=== PATIENT | male | born 1965 | race Caucasian/White ===

== ENCOUNTER 2018-11-07 09:42 | Inpatient (IN) | payer OTHER ==
[2018-11-07 10:57] VITALS: BMI 19.5
--- NOTE | 2018-11-07 12:21 | HP ---
CIWA Score Nausea/Vomitin-Mild Nausea/No Vomiting Muscle Tremors: 4-Moderate,w/Arms Extend Anxiety: 3 Agitation: 3 Paroxysmal Sweats: No Perspiration Orientation: 0-Oriented Tacttile Disturbances: 0-None Auditory Disturbances: 0-None Visual Disturbances: 0-None Headache: 2-Mild CIWA-Ar Total Score: 13 - Admission Criteria OASAS Guidelines: Admission for Medically Managed Detox: Requires at least one of the followin. CIWA greater than 12 2. Seizures within the past 24 hours 3. Delirium tremens within the past 24 hours 4. Hallucinations within the past 24 hours 5. Acute intervention needed for co occurring medical disorder 6. Acute intervention needed for co occurring psychiatric disorder 7. Severe withdrawal that cannot be handled at a lower level of care (continued vomiting, continued diarrhea, abnormal vital signs) requiring intravenous medication and/or fluids 8. Admission ROS [facility] Chief Complaint: alcohol detox Allergies/Adverse Reactions: Allergies Allergy/AdvReac Type Severity Reaction Status Date / Time shellfish derived Allergy Swelling Verified 11/07/18 10:46 History of Present Illness: Patient is a 53 yo M with no known PMHx (does not see a doctor), presenting here for alcohol detox. Says he has been drinking for a year straight every day. Drink 2-3 pints of vodka per day. Last drink yesterday at 2pm. Says he sniffs heroin occasionally. But no IV drug use. Currently on 50mg of methadone @ [facility]. Has been on methadone for 1 year. Denies history of seizure, blacking out. Smokes 10 cigarettes a day. Unemployed. Lives alone in an apartment. Has been to multiple detox centers in the past. Last one being in 6 months. Exam Limitations: No Limitations - Ebola screening Have you traveled outside of the country in the last 21 days: No Have you had contact with anyone from an Ebola affected area: No Do you have a fever: No - Review of Systems Constitutional: Loss of Appetite, Unintentional Wgt. Loss Respiratory: reports: Cough (w/ yellow sputum (couple of months)). denies: Shortness of Breath Cardiac: denies: Chest Pain, Palpitations GI: denies: Diarrhea, Nausea Patient History - Smoking Cessation Smoking history: Current every day smoker Initiated information on smoking cessation: Yes 'Breaking Loose' booklet given: 11/07/18 - Substances abused Alcohol Substance route: Oral Frequency: Daily Amount used: 3 pints vodka Age of first use: 18 Date of last use: 11/06/18 Heroin Substance route: Inhalation Frequency: 1-2 times per week Amount used: $10 bag Age of first use: 18 Date of last use: 11/02/18 Family Disease History - Family Disease History Family History: Denies Admission Physical Exam S - Vital Signs Vital Signs: Vital Signs - 24 hr 11/07/18 10:41 Temperature 97.4 F L Pulse Rate 59 L Respiratory 18 Rate Blood Pressure 120/80 - Physical General Appearance: Yes: Thin, Tremorous HEENTM: Yes: Other (b/l injected conjunctiva) Respiratory: Yes: No Respiratory Distress, No Accessory Muscle Use Neck: Yes: Supple Abdominal: Yes: Normal Bowel Sounds, Non Tender, Soft Extremities: Yes: Other (Bruising on B/L knee from falls). No: Swelling - Diagnostic (1) Alcohol abuse Current Visit: Yes Status: Acute (2) Methadone maintenance therapy patient Current Visit: Yes Status: Acute (3) Heroin abuse Current Visit: Yes Status: Acute Breathalyzer - Breathalyzer Breathalyzer: 0 Urine Drug Screen - Test Device Lot number: [id number] Expiration date: 08/11/20 - Control Is test valid?: Yes - Results Drug screen NEGATIVE: No Urine drug screen results: MTD-Methadone Inpatient Rehab Admission - Rehab Decision to Admit Inpatient rehab admission?: No
[2018-11-07] MEDS ORDERED: ACETAMINOPHEN 325 MG TABLET (FP) PO PRN ×2 (12:28)
[2018-11-07] MEDS ORDERED: BISMUTH SUBSALICYLATE 524 MG/30 ML UD PO PRN (12:28)
[2018-11-07] MEDS ORDERED: MAGNESIUM HYDROX 2400MG/30ML ORAL SUSPENSION 30 ML CUP PO PRN (12:28)
[2018-11-07] MEDS ORDERED: chlordiazePOXIDE HCL 25 MG CAPSULE PO PRN (12:28)
[2018-11-07] MEDS ORDERED: MAG HYDROX/AL HYDROX/SIMETH 30 ML UNIT-DOSE CUP PO PRN (12:28)
[2018-11-07] MEDS ORDERED: hydrOXYzine PAMOATE 25 MG CAPSULE (FP) PO PRN (12:28)
[2018-11-07] MEDS ORDERED: IBUPROFEN 400 MG TABLET (FP) PO PRN (12:28)
[2018-11-07] MEDS ORDERED: MENTHOL/PHENOL 1 EACH UD MM PRN (12:28)
[2018-11-07] MEDS ORDERED: METHOCARBAMOL 500 MG TABLET PO PRN (12:28)
[2018-11-07] MEDS ORDERED: MAGNESIUM CITRATE 300 ML BOTTLE PO PRN (12:28)
[2018-11-07] MEDS: NICOTINE 14 MG/24 HOURS TOPICAL PATCH TD SCH (14:14)
--- NOTE | 2018-11-07 15:44 | PN ---
Teaching Attending Note Name of Resident: Beth Arevalo ATTENDING PHYSICIAN STATEMENT I saw and evaluated the patient. I reviewed the resident's note and discussed the case with the resident. I agree with the resident's findings and plan as documented. SUBJECTIVE: Agree with subjective findings OBJECTIVE: Agree with objective findings ASSESSMENT AND PLAN: Agree with plan and treatment.
[2018-11-07] MEDS: chlordiazePOXIDE HCL 25 MG CAPSULE PO SCH ×2 (16:41→22:13)
[2018-11-07 18:16] LABS: HEMATOCRIT 44.4 % (35.4-49); HEMOGLOBIN 14.4 GM/dL (11.7-16.9); MCH 29.3 pg (25.7-33.7); MCHC 32.3 g/dl (32.0-35.9); MEAN CELL VOLUME 90.5 fl (80-96); MEAN PLT VOLUME 9.8 fl (7.5-11.1); PLATELET COUNT 165 K/MM3 (134-434); RDW 14.7 % (11.9-15.9); WHITE BLOOD COUNT 7.6 K/mm3 (4.0-10.0)
[2018-11-07 18:28] LABS: ALBUMIN 4.2 g/dl (3.4-5.0); BILIRUBIN,TOTAL 0.8 mg/dL (0.2-1); BLOOD UREA NITROGEN 17.5 mg/dL (7-18); CALCIUM 9.3 mg/dL (8.5-10.1); CREATININE 0.7 mg/dL (0.55-1.3); POTASSIUM 3.9 mmol/L (3.5-5.1); TOT PROT 8.1 g/dl (6.4-8.2)
[2018-11-07] MEDS: MELATONIN 5 MG TABLETS PO PRN (22:13)
[2018-11-07] MEDS: THIAMINE HCL 100 MG TABLET (FP) PO SCH (22:13)
[2018-11-08] MEDS: chlordiazePOXIDE HCL 25 MG CAPSULE PO SCH ×4 (05:22→22:04)
[2018-11-08] MEDS ORDERED: METHADONE HCL 10 MG TABLET PO ONE (08:40)
[2018-11-08] MEDS ORDERED: METHADONE 40 MG, METHADONE 10 MG PO ONE (08:50)
[2018-11-08] MEDS ORDERED: METHADONE HCL 40 MG DISPERSABLE TABLET ONE (09:00)
[2018-11-08] MEDS ORDERED: METHADONE HCL 10 MG TABLET ONE (09:00)
[2018-11-08] MEDS: PRENATAL VITAMINS W/ FOLIC ACID TABLET (FP) PO SCH (10:04)
[2018-11-08] MEDS: NICOTINE 14 MG/24 HOURS TOPICAL PATCH TD SCH (10:05)
--- NOTE | 2018-11-08 10:29 | PN ---
[facility] CIWA - CIWA Score Nausea/Vomitin-No Nausea/No Vomiting Muscle Tremors: 3 Anxiety: 3 Agitation: 3 Paroxysmal Sweats: 2 Orientation: 0-Oriented Tacttile Disturbances: 0-None Auditory Disturbances: 0-None Visual Disturbances: 0-None Headache: 0-None Present CIWA-Ar Total Score: 11 S Progress Note (SOAP) Subjective: restless agitation sweats interrupted sleep Objective: 11/08/18 10:28 Vital Signs Temperature 97.9 F 11/08/18 09:27 Pulse Rate 58 L 11/08/18 09:27 Respiratory Rate 16 11/08/18 09:27 Blood Pressure 124/70 11/08/18 09:27 O2 Sat by Pulse Oximetry (%) Laboratory Tests 11/07/18 11/07/18 12:45 12:45 WBC 7.6 RBC 4.90 Hgb 14.4 Hct 44.4 MCV 90.5 MCH 29.3 MCHC 32.3 RDW 14.7 Plt Count 165 MPV 9.8 Sodium 139 Potassium 3.9 Chloride 100 Carbon Dioxide 30 Anion Gap 9 BUN 17.5 Creatinine 0.7 Est GFR (CKD-EPI)AfAm 124.87 Est GFR (CKD-EPI)NonAf 107.74 Random Glucose 67 L Calcium 9.3 Total Bilirubin 0.8 AST 100 H ALT 93 H Alkaline Phosphatase 88 Total Protein 8.1 Albumin 4.2 labs noted elevated ast/alt encourage fluid intake aaox3 ambulating no acute distress Assessment: 11/08/18 10:29 withdrawal sx Plan: continue detox increase fluids
--- NOTE | 2018-11-08 10:56 | EKG ---
Test Reason : Blood Pressure : / mmHG Vent. Rate : 056 BPM Atrial Rate : 056 BPM P-R Int : 120 ms QRS Dur : 092 ms QT Int : 444 ms P-R-T Axes : 014 060 061 degrees QTc Int : 428 ms SINUS BRADYCARDIA OTHERWISE NORMAL ECG NO PREVIOUS ECGS AVAILABLE Confirmed by SATYA MATOS, AINSA ([id number]) on 11/08/2018 10:56:09 AM Referred By: Confirmed By:ANISA HERNADEZ MD
[2018-11-08] MEDS: NICOTINE POLACRILEX 2 MG GUM BUC PRN ×2 (17:34→22:05)
[2018-11-08] MEDS: MELATONIN 5 MG TABLETS PO PRN (22:03)
[2018-11-08] MEDS: THIAMINE HCL 100 MG TABLET (FP) PO SCH (22:04)
[2018-11-09] MEDS ORDERED: METHADONE HCL 40 MG DISPERSABLE TABLET ONE (04:25)
[2018-11-09] MEDS ORDERED: METHADONE HCL 10 MG TABLET ONE (04:25)
[2018-11-09] MEDS: chlordiazePOXIDE HCL 25 MG CAPSULE PO SCH ×4 (05:41→22:23)
[2018-11-09] MEDS: METHADONE 40 MG, METHADONE 10 MG PO SCH (05:41)
[2018-11-09] MEDS ORDERED: METHADONE HCL 40 MG DISPERSABLE TABLET PO SCH (06:00)
[2018-11-09] MEDS: PRENATAL VITAMINS W/ FOLIC ACID TABLET (FP) PO SCH (10:19)
[2018-11-09] MEDS: NICOTINE POLACRILEX 2 MG GUM BUC PRN ×4 (10:20→22:24)
[2018-11-09] MEDS: NICOTINE 14 MG/24 HOURS TOPICAL PATCH TD SCH (10:20)
[2018-11-09] MEDS ORDERED: PNEUMOCOCCAL 23 VACCINE 0.5 ML VIAL IM ONE (12:00)
--- NOTE | 2018-11-09 12:21 | PN ---
[facility] CIWA - CIWA Score Nausea/Vomitin-No Nausea/No Vomiting Muscle Tremors: 3 Anxiety: 2 Agitation: 2 Paroxysmal Sweats: 2 Orientation: 0-Oriented Tacttile Disturbances: 0-None Auditory Disturbances: 0-None Visual Disturbances: 0-None Headache: 0-None Present CIWA-Ar Total Score: 9 S Progress Note (SOAP) Subjective: shakes anxiety Objective: 11/09/18 12:19 Vital Signs Temperature 97.2 F L 11/09/18 09:41 Pulse Rate 73 11/09/18 09:41 Respiratory Rate 18 11/09/18 09:41 Blood Pressure 126/70 11/09/18 09:41 O2 Sat by Pulse Oximetry (%) Laboratory Tests 11/07/18 11/07/18 11/07/18 12:45 12:45 12:45 WBC 7.6 RBC 4.90 Hgb 14.4 Hct 44.4 MCV 90.5 MCH 29.3 MCHC 32.3 RDW 14.7 Plt Count 165 MPV 9.8 Sodium 139 Potassium 3.9 Chloride 100 Carbon Dioxide 30 Anion Gap 9 BUN 17.5 Creatinine 0.7 Est GFR (CKD-EPI)AfAm 124.87 Est GFR (CKD-EPI)NonAf 107.74 Random Glucose 67 L Calcium 9.3 Total Bilirubin 0.8 AST 100 H ALT 93 H Alkaline Phosphatase 88 Total Protein 8.1 Albumin 4.2 RPR Titer Nonreactive HIV 1&2 Ag/Ab, 4th Gen 11/07/18 12:45 WBC RBC Hgb Hct MCV MCH MCHC RDW Plt Count MPV Sodium Potassium Chloride Carbon Dioxide Anion Gap BUN Creatinine Est GFR (CKD-EPI)AfAm Est GFR (CKD-EPI)NonAf Random Glucose Calcium Total Bilirubin AST ALT Alkaline Phosphatase Total Protein Albumin RPR Titer HIV 1&2 Ag/Ab, 4th Gen Non reactive labs noted aaox3 ambulating no acute distress Assessment: 11/09/18 12:21 withdrawals sx Plan: continue detox increase fluids
[2018-11-09] MEDS: THIAMINE HCL 100 MG TABLET (FP) PO SCH (22:23)
[2018-11-09] MEDS: MELATONIN 5 MG TABLETS PO PRN (22:24)
[2018-11-10] MEDS ORDERED: chlordiazePOXIDE HCL 10 MG CAPSULE PO PRN
[2018-11-10] MEDS ORDERED: METHADONE HCL 10 MG TABLET ONE (04:45)
[2018-11-10] MEDS ORDERED: METHADONE HCL 40 MG DISPERSABLE TABLET ONE (04:45)
[2018-11-10] MEDS: METHADONE 40 MG, METHADONE 10 MG PO SCH (05:47)
[2018-11-10] MEDS: chlordiazePOXIDE HCL 10 MG CAPSULE PO SCH ×4 (05:47→22:04)
[2018-11-10] MEDS: NICOTINE POLACRILEX 2 MG GUM BUC PRN ×4 (10:03→22:04)
[2018-11-10] MEDS: NICOTINE 14 MG/24 HOURS TOPICAL PATCH TD SCH (10:03)
[2018-11-10] MEDS: PRENATAL VITAMINS W/ FOLIC ACID TABLET (FP) PO SCH (10:03)
--- NOTE | 2018-11-10 12:20 | PN ---
[facility] CIWA - CIWA Score Nausea/Vomitin-No Nausea/No Vomiting Muscle Tremors: 2 Anxiety: 2 Agitation: 2 Paroxysmal Sweats: 1-Minimal Palms Moist Orientation: 0-Oriented Tacttile Disturbances: 0-None Auditory Disturbances: 0-None Visual Disturbances: 0-None Headache: 0-None Present CIWA-Ar Total Score: 7 BHS Progress Note (SOAP) Subjective: shakes little sweats Objective: 11/10/18 12:19 Vital Signs Temperature 97.5 F L 11/10/18 09:38 Pulse Rate 61 11/10/18 09:38 Respiratory Rate 18 11/10/18 09:38 Blood Pressure 111/58 L 11/10/18 09:38 O2 Sat by Pulse Oximetry (%) aaox3 ambulating no acute distress Assessment: 11/10/18 12:19 mild withdrawals Plan: continue detox increase fluids
[2018-11-10] MEDS: THIAMINE HCL 100 MG TABLET (FP) PO SCH (22:04)
[2018-11-10] MEDS: MELATONIN 5 MG TABLETS PO PRN (22:04)
[2018-11-11] MEDS ORDERED: METHADONE HCL 10 MG TABLET ONE (04:02)
[2018-11-11] MEDS ORDERED: METHADONE HCL 40 MG DISPERSABLE TABLET ONE (04:02)
[2018-11-11] MEDS: METHADONE 40 MG, METHADONE 10 MG PO SCH (06:08)
[2018-11-11] MEDS: chlordiazePOXIDE HCL 10 MG CAPSULE PO SCH ×2 (06:09→17:37)
[2018-11-11] MEDS: NICOTINE POLACRILEX 2 MG GUM BUC PRN ×3 (10:29→22:03)
[2018-11-11] MEDS: NICOTINE 14 MG/24 HOURS TOPICAL PATCH TD SCH (10:29)
[2018-11-11] MEDS: PRENATAL VITAMINS W/ FOLIC ACID TABLET (FP) PO SCH (10:29)
--- NOTE | 2018-11-11 10:41 | PN ---
S CIWA - CIWA Score Nausea/Vomitin-No Nausea/No Vomiting Muscle Tremors: None Anxiety: 2 Agitation: 0-Normal Activity Paroxysmal Sweats: 2 Orientation: 0-Oriented Tacttile Disturbances: 0-None Auditory Disturbances: 0-None Visual Disturbances: 0-None Headache: 0-None Present CIWA-Ar Total Score: 4 S Progress Note (SOAP) Subjective: c/o sweats and anxiety. Objective: 11/11/18 10:40 Vital Signs 11/11/18 11/11/18 11/11/18 03:30 07:07 09:38 Temperature 97.5 F L 97.3 F L Pulse Rate 59 L 67 Respiratory 18 16 18 Rate Blood Pressure 117/73 110/77 Lab Results WBC 7.6 K/mm3 (4.0-10.0) 11/07/18 12:45 RBC 4.90 M/mm3 (4.00-5.60) 11/07/18 12:45 Hgb 14.4 GM/dL (11.7-16.9) 11/07/18 12:45 Hct 44.4 % (35.4-49) 11/07/18 12:45 MCV 90.5 fl (80-96) 11/07/18 12:45 MCHC 32.3 g/dl (32.0-35.9) 11/07/18 12:45 RDW 14.7 % (11.9-15.9) 11/07/18 12:45 Plt Count 165 K/MM3 (134-434) 11/07/18 12:45 Sodium 139 mmol/L (136-145) 11/07/18 12:45 Potassium 3.9 mmol/L (3.5-5.1) 11/07/18 12:45 Chloride 100 mmol/L (98-107) 11/07/18 12:45 Carbon Dioxide 30 mmol/L (21-32) 11/07/18 12:45 Anion Gap 9 MMOL/L (8-16) 11/07/18 12:45 BUN 17.5 mg/dL (7-18) 11/07/18 12:45 Creatinine 0.7 mg/dL (0.55-1.3) 11/07/18 12:45 Random Glucose 67 mg/dL (74-106) L 11/07/18 12:45 Calcium 9.3 mg/dL (8.5-10.1) 11/07/18 12:45 Labs noted. Assessment: 11/11/18 10:40 AOX3, in no acute respiratory distress. Full ROM, ambulating in the unit. Mild withdrawal symptoms. Plan: continue detox.
[2018-11-11] MEDS: THIAMINE HCL 100 MG TABLET (FP) PO SCH (22:03)
[2018-11-11] MEDS: MELATONIN 5 MG TABLETS PO PRN (22:03)
[2018-11-12] MEDS ORDERED: METHADONE HCL 10 MG TABLET ONE (04:47)
[2018-11-12] MEDS ORDERED: METHADONE HCL 40 MG DISPERSABLE TABLET ONE (04:47)
[2018-11-12] MEDS ORDERED: chlordiazePOXIDE HCL 10 MG CAPSULE PO ONE (05:00)
[2018-11-12] MEDS: METHADONE 40 MG, METHADONE 10 MG PO SCH (05:38)
[2018-11-12 09:22] VITALS: BP 103/72; PULSE 78; TEMP 98.3
[2018-11-12] MEDS: PRENATAL VITAMINS W/ FOLIC ACID TABLET (FP) PO SCH (10:03)
[2018-11-12] MEDS: NICOTINE 14 MG/24 HOURS TOPICAL PATCH TD SCH (10:04)
--- NOTE | 2018-11-12 14:27 | DS ---
[facility] Detox Discharge Summary Admission Date: 11/07/18 - History Present History: Alcohol Dependence, MMTP Additional Comments: Patient completed detox successfully and accepted admission to [facility] rehab. Patient is stable and denies any complaint. Pertinent Past History: Alcohol dependence Opioid use disorder on MMTP Nicotine dependence - Physical Exam Results Vital Signs: Vital Signs Temperature 98.3 F 11/12/18 09:21 Pulse Rate 78 11/12/18 09:21 Respiratory Rate 18 11/12/18 09:21 Blood Pressure 103/72 11/12/18 09:21 O2 Sat by Pulse Oximetry (%) Pertinent Admission Physical Exam Findings: Withdrawal sxs Laboratory Tests 11/07/18 11/07/18 11/07/18 12:45 12:45 12:45 WBC 7.6 RBC 4.90 Hgb 14.4 Hct 44.4 MCV 90.5 MCH 29.3 MCHC 32.3 RDW 14.7 Plt Count 165 MPV 9.8 Sodium 139 Potassium 3.9 Chloride 100 Carbon Dioxide 30 Anion Gap 9 BUN 17.5 Creatinine 0.7 Est GFR (CKD-EPI)AfAm 124.87 Est GFR (CKD-EPI)NonAf 107.74 Random Glucose 67 L Calcium 9.3 Total Bilirubin 0.8 AST 100 H ALT 93 H Alkaline Phosphatase 88 Total Protein 8.1 Albumin 4.2 RPR Titer Nonreactive HIV 1&2 Ag/Ab, 4th Gen TB (QFT) Incubation TB Test (QFT) Nil TB Test (QFT) Mitogen TB Test (QFT) Antigen TB Test (QFT) TB Positive Criteria 11/07/18 11/07/18 12:45 14:30 WBC RBC Hgb Hct MCV MCH MCHC RDW Plt Count MPV Sodium Potassium Chloride Carbon Dioxide Anion Gap BUN Creatinine Est GFR (CKD-EPI)AfAm Est GFR (CKD-EPI)NonAf Random Glucose Calcium Total Bilirubin AST ALT Alkaline Phosphatase Total Protein Albumin RPR Titer HIV 1&2 Ag/Ab, 4th Gen Non reactive TB (QFT) Incubation TB Test (QFT) Nil 0.16 TB Test (QFT) Mitogen >10.00 TB Test (QFT) Antigen 0.16 TB Test (QFT) Negative TB Positive Criteria Labs reviewed - Treatment Hospital Course: Detox Protocol Followed, Detoxed Safely, Responded well, Discharged Condition Good, Rehab Referral Accepted - Medication Discharge Medications: Ambulatory Orders NK [No Known Home Medication] 11/07/18 - Diagnosis (1) Alcohol dependence with withdrawal, uncomplicated Status: Acute (2) Nicotine dependence Status: Chronic (3) Heroin abuse Status: Chronic (4) Methadone maintenance therapy patient Status: Chronic - AMA Did Patient Leave Against Medical Advice: No (Accepted admission to [facility] rehab)
== END 2018-11-12 11:09 | disposition other institution (70) | DRG 773 ==
LOC: YASAS 09:42 → Y6N 12:53
PROVIDERS: ADMIT Surgery; ATTEND Surgery
PROC: HZ2ZZZZ Detoxification Services for Substance Abuse Treatment (ICD-10-PCS; principal; 2018-11-07)
DX: F10.230 Alcohol dependence with withdrawal, uncomplicated (principal); F11.20 Opioid dependence, uncomplicated; F17.210 Nicotine dependence, cigarettes, uncomplicated
CPT/HCPCS: 36415; 80053; 85027; 86480; 86593; 87389; 90732; 93005; 93010; G0009

== ENCOUNTER 2018-11-12 11:25 | Inpatient (IN) | payer OTHER ==
[2018-11-12] MEDS ORDERED: LOPERAMIDE HCL 2 MG CAPSULE PO PRN (14:30)
[2018-11-12] MEDS ORDERED: ACETAMINOPHEN 325 MG TABLET (FP) PO PRN (14:30)
[2018-11-12] MEDS ORDERED: MENTHOL/PHENOL 1 EACH UD MM PRN (14:30)
[2018-11-12] MEDS ORDERED: MAGNESIUM CITRATE 300 ML BOTTLE PO PRN (14:30)
[2018-11-12] MEDS ORDERED: IBUPROFEN 400 MG TABLET (FP) PO PRN (14:30)
[2018-11-12] MEDS ORDERED: MAGNESIUM HYDROX 2400MG/30ML ORAL SUSPENSION 30 ML CUP PO PRN (14:30)
[2018-11-12] MEDS ORDERED: guaiFENesin 200 MG/10 ML 10 ML UNIT-DOSE CUPS PO PRN (14:30)
[2018-11-12] MEDS ORDERED: MAG HYDROX/AL HYDROX/SIMETH 30 ML UNIT-DOSE CUP PO PRN (14:30)
[2018-11-12] MEDS ORDERED: P-EPHED 60MG/TRIPROLIDI 2.5MG TABLET PO PRN (14:30)
--- NOTE | 2018-11-12 14:38 | HP ---
MELY MATOS Rehab Assess/Revision - Admission History Admitted to Rehab from: [facility] Date of Admission to Rehab: 11/12/2018 - Vital signs Vital Signs: Vital Signs Period Temp Pulse Resp BP Sys/Chaves Pulse Ox Last 24 Hr 61 104/64 - Findings Detox History & Physical reviewed: Yes Concur with findings: Yes Inpatient Rehab Admission - Rehab Decision to Admit Inpatient rehab admission?: Yes - Initial Determination Are CD services needed?: No Free of communicable disease: Yes Not in need of hospitalization: Yes - Rehab Admission Criteria Previous failed treatment: Yes Poor recovery environment: Yes Comorbidities: No Lacks judgement: Yes Patient is meeting Inpatient Rehab admission criteria:: Yes
[2018-11-12] MEDS: THIAMINE HCL 100 MG TABLET (FP) PO SCH (21:44)
[2018-11-12] MEDS: NICOTINE POLACRILEX 2 MG GUM BUC PRN (21:45)
[2018-11-12] MEDS: MELATONIN 5 MG TABLETS PO PRN (21:45)
[2018-11-13] MEDS ORDERED: METHADONE HCL 40 MG DISPERSABLE TABLET ONE (05:58)
[2018-11-13] MEDS ORDERED: METHADONE HCL 10 MG TABLET ONE (05:58)
[2018-11-13] MEDS ORDERED: METHADONE HCL 10 MG TABLET PO SCH (06:00)
[2018-11-13] MEDS: METHADONE 40 MG, METHADONE 10 MG PO SCH (06:17)
[2018-11-13] MEDS: PRENATAL VITAMINS W/ FOLIC ACID TABLET (FP) PO SCH (09:50)
[2018-11-13] MEDS: NICOTINE POLACRILEX 2 MG GUM BUC PRN ×2 (09:51→21:35)
[2018-11-13] MEDS: MELATONIN 5 MG TABLETS PO PRN (21:35)
[2018-11-13] MEDS: THIAMINE HCL 100 MG TABLET (FP) PO SCH (21:35)
[2018-11-14] MEDS ORDERED: METHADONE HCL 10 MG TABLET ONE (06:00)
[2018-11-14] MEDS ORDERED: METHADONE HCL 40 MG DISPERSABLE TABLET ONE (06:01)
[2018-11-14] MEDS: METHADONE 40 MG, METHADONE 10 MG PO SCH (06:26)
[2018-11-14] MEDS: NICOTINE POLACRILEX 2 MG GUM BUC PRN ×2 (09:49→21:33)
[2018-11-14] MEDS: PRENATAL VITAMINS W/ FOLIC ACID TABLET (FP) PO SCH (09:49)
[2018-11-14] MEDS: THIAMINE HCL 100 MG TABLET (FP) PO SCH (21:33)
[2018-11-14] MEDS: MELATONIN 5 MG TABLETS PO PRN (21:33)
[2018-11-15] MEDS ORDERED: METHADONE HCL 10 MG TABLET ONE (05:32)
[2018-11-15] MEDS ORDERED: METHADONE HCL 40 MG DISPERSABLE TABLET ONE (05:33)
[2018-11-15] MEDS: METHADONE 40 MG, METHADONE 10 MG PO SCH (06:04)
[2018-11-15] MEDS: NICOTINE POLACRILEX 2 MG GUM BUC PRN ×3 (09:47→21:08)
[2018-11-15] MEDS: PRENATAL VITAMINS W/ FOLIC ACID TABLET (FP) PO SCH (09:47)
[2018-11-15] MEDS: THIAMINE HCL 100 MG TABLET (FP) PO SCH (21:07)
[2018-11-15] MEDS: MELATONIN 5 MG TABLETS PO PRN (21:07)
[2018-11-16] MEDS ORDERED: METHADONE HCL 40 MG DISPERSABLE TABLET ONE (05:27)
[2018-11-16] MEDS ORDERED: METHADONE HCL 10 MG TABLET ONE (05:27)
[2018-11-16] MEDS: METHADONE 40 MG, METHADONE 10 MG PO SCH (06:06)
[2018-11-16] MEDS: NICOTINE POLACRILEX 2 MG GUM BUC PRN ×2 (06:08→21:06)
[2018-11-16] MEDS: PRENATAL VITAMINS W/ FOLIC ACID TABLET (FP) PO SCH (09:52)
[2018-11-16] MEDS: hydrOXYzine PAMOATE 50 MG CAPSULE (FP) PO PRN ×2 (09:53→21:05)
[2018-11-16] MEDS: THIAMINE HCL 100 MG TABLET (FP) PO SCH (21:04)
[2018-11-16] MEDS: MELATONIN 5 MG TABLETS PO PRN (21:04)
[2018-11-17] MEDS ORDERED: METHADONE HCL 40 MG DISPERSABLE TABLET ONE (05:37)
[2018-11-17] MEDS ORDERED: METHADONE HCL 10 MG TABLET ONE (05:37)
[2018-11-17] MEDS: METHADONE 40 MG, METHADONE 10 MG PO SCH (05:52)
[2018-11-17] MEDS: hydrOXYzine PAMOATE 50 MG CAPSULE (FP) PO PRN ×2 (09:48→21:02)
[2018-11-17] MEDS: PRENATAL VITAMINS W/ FOLIC ACID TABLET (FP) PO SCH (09:48)
[2018-11-17] MEDS: THIAMINE HCL 100 MG TABLET (FP) PO SCH (21:02)
[2018-11-17] MEDS: NICOTINE POLACRILEX 2 MG GUM BUC PRN (21:03)
[2018-11-17] MEDS: MELATONIN 5 MG TABLETS PO PRN (21:03)
[2018-11-18] MEDS ORDERED: METHADONE HCL 40 MG DISPERSABLE TABLET ONE (06:01)
[2018-11-18] MEDS ORDERED: METHADONE HCL 10 MG TABLET ONE (06:01)
[2018-11-18] MEDS: METHADONE 40 MG, METHADONE 10 MG PO SCH (06:18)
[2018-11-18] MEDS: NICOTINE POLACRILEX 2 MG GUM BUC PRN ×3 (06:19→21:38)
[2018-11-18] MEDS: PRENATAL VITAMINS W/ FOLIC ACID TABLET (FP) PO SCH (09:56)
[2018-11-18] MEDS: hydrOXYzine PAMOATE 50 MG CAPSULE (FP) PO PRN (09:56)
[2018-11-18] MEDS: THIAMINE HCL 100 MG TABLET (FP) PO SCH (21:38)
[2018-11-18] MEDS: MELATONIN 5 MG TABLETS PO PRN (21:38)
[2018-11-19] MEDS ORDERED: METHADONE HCL 40 MG DISPERSABLE TABLET ONE (05:52)
[2018-11-19] MEDS ORDERED: METHADONE HCL 10 MG TABLET ONE (05:52)
[2018-11-19] MEDS: METHADONE 40 MG, METHADONE 10 MG PO SCH (06:10)
[2018-11-19] MEDS: PRENATAL VITAMINS W/ FOLIC ACID TABLET (FP) PO SCH (09:28)
[2018-11-19] MEDS: NICOTINE POLACRILEX 2 MG GUM BUC PRN ×3 (09:29→21:16)
[2018-11-19] MEDS: THIAMINE HCL 100 MG TABLET (FP) PO SCH (21:16)
[2018-11-19] MEDS: MELATONIN 5 MG TABLETS PO PRN (21:16)
[2018-11-20] MEDS ORDERED: METHADONE HCL 40 MG DISPERSABLE TABLET ONE (05:29)
[2018-11-20] MEDS ORDERED: METHADONE HCL 10 MG TABLET ONE (05:29)
[2018-11-20] MEDS: METHADONE 40 MG, METHADONE 10 MG PO SCH (05:50)
[2018-11-20] MEDS: NICOTINE POLACRILEX 2 MG GUM BUC PRN ×3 (05:52→21:09)
[2018-11-20] MEDS: hydrOXYzine PAMOATE 50 MG CAPSULE (FP) PO PRN ×2 (09:49→21:09)
[2018-11-20] MEDS: PRENATAL VITAMINS W/ FOLIC ACID TABLET (FP) PO SCH (09:49)
[2018-11-20] MEDS: THIAMINE HCL 100 MG TABLET (FP) PO SCH (21:08)
[2018-11-20] MEDS: MELATONIN 5 MG TABLETS PO PRN (21:09)
[2018-11-21] MEDS ORDERED: METHADONE HCL 10 MG TABLET ONE (05:35)
[2018-11-21] MEDS ORDERED: METHADONE HCL 40 MG DISPERSABLE TABLET ONE (05:35)
[2018-11-21] MEDS: METHADONE 40 MG, METHADONE 10 MG PO SCH (05:49)
[2018-11-21] MEDS: PRENATAL VITAMINS W/ FOLIC ACID TABLET (FP) PO SCH (09:52)
[2018-11-21] MEDS: NICOTINE POLACRILEX 2 MG GUM BUC PRN ×2 (09:53→21:11)
[2018-11-21] MEDS: hydrOXYzine PAMOATE 50 MG CAPSULE (FP) PO PRN ×2 (09:53→21:10)
[2018-11-21] MEDS: THIAMINE HCL 100 MG TABLET (FP) PO SCH (21:10)
[2018-11-22] MEDS ORDERED: METHADONE HCL 10 MG TABLET ONE (05:35)
[2018-11-22] MEDS ORDERED: METHADONE HCL 40 MG DISPERSABLE TABLET ONE (05:35)
[2018-11-22] MEDS: METHADONE 40 MG, METHADONE 10 MG PO SCH (06:01)
[2018-11-22] MEDS: NICOTINE POLACRILEX 2 MG GUM BUC PRN ×4 (06:02→21:42)
[2018-11-22] MEDS: PRENATAL VITAMINS W/ FOLIC ACID TABLET (FP) PO SCH (10:01)
[2018-11-22] MEDS: MELATONIN 5 MG TABLETS PO PRN (21:42)
[2018-11-22] MEDS: THIAMINE HCL 100 MG TABLET (FP) PO SCH (21:42)
[2018-11-23] MEDS ORDERED: METHADONE HCL 10 MG TABLET ONE (05:56)
[2018-11-23] MEDS ORDERED: METHADONE HCL 40 MG DISPERSABLE TABLET ONE (05:56)
[2018-11-23] MEDS: METHADONE 40 MG, METHADONE 10 MG PO SCH (06:25)
[2018-11-23] MEDS: NICOTINE POLACRILEX 2 MG GUM BUC PRN ×6 (06:25→21:42)
[2018-11-23] MEDS: hydrOXYzine PAMOATE 50 MG CAPSULE (FP) PO PRN (10:05)
[2018-11-23] MEDS: PRENATAL VITAMINS W/ FOLIC ACID TABLET (FP) PO SCH (11:00)
--- NOTE | 2018-11-23 15:28 | DS ---
[facility] Rehab Discharge Summary - [facility] Rehab Discharge Summary Admission Date: 11/12/18 Discharge Date: 11/23/18 - History Present History: Alcohol dependence, MMTP, Opioid dependence Pertinent Past History: Patient is a 53 yo M with no known PMHx (does not see a doctor) Says he has been drinking for a year straight every day. Drink 2-3 pints of vodka per day. Says he sniffs heroin occasionally. But no IV drug use. Currently on 50mg of methadone @ [facility]. Has been on methadone for 1 year. Denies history of seizure, blacking out. Smokes 10 cigarettes a day. Unemployed. Lives alone in an apartment. Has been to multiple detox centers in the past. Last one being in 6 months. - Discharge Physical Exam Vital Signs: Vital Signs Temperature 98.7 F 11/23/18 09:00 Pulse Rate 91 H 11/23/18 09:00 Respiratory Rate 16 11/23/18 09:00 Blood Pressure 124/70 11/23/18 09:00 O2 Sat by Pulse Oximetry (%) Pertinent Admission Physical Exam Findings: - Physical General Appearance:No apparent distress HEENTM: normocephalic; PERRLA Respiratory: clear Neck: supple Heart: s1 s2 Abdominal; +Bowel Sounds, Non Tender, Soft MSK: full weight bearing, full ROM, steady gait. - Treatment Discharge Condition: Outpatient referral accepted (medically stable for discharge Will return to [facility] MMTP program) Hospital Course: Patient was adherent to treatment program and medication regimen. He had no acute, urgent or emergent medical problems during rehab. - Medication Discharge Medications: Ambulatory Orders NK [No Known Home Medication] 11/07/18 - Medication-Assisted Treatment (MAT) Medication-Assisted Treatment (MAT): No - Discharge Instructions Diet, activity, other medical instructions: Diet: as tolerated Activity: as tolerated Other medical instructions: Please follow up with MMTP at [facility]. - Follow-up Referral Minutes to complete discharge: 20 - AMA Did Patient Leave Against Medical Advice: No
[2018-11-23] MEDS: THIAMINE HCL 100 MG TABLET (FP) PO SCH (21:09)
[2018-11-23] MEDS: MELATONIN 5 MG TABLETS PO PRN (21:09)
[2018-11-24] MEDS ORDERED: METHADONE HCL 40 MG DISPERSABLE TABLET ONE (05:35)
[2018-11-24] MEDS ORDERED: METHADONE HCL 10 MG TABLET ONE (05:35)
[2018-11-24] MEDS: METHADONE 40 MG, METHADONE 10 MG PO SCH (05:54)
[2018-11-24] MEDS: NICOTINE POLACRILEX 2 MG GUM BUC PRN ×2 (05:55→09:39)
[2018-11-24 06:28] VITALS: BP 121/72; PULSE 69; TEMP 97.8
[2018-11-24] MEDS: PRENATAL VITAMINS W/ FOLIC ACID TABLET (FP) PO SCH (09:38)
== END 2018-11-24 09:45 | disposition home or self-care (01) | DRG 772 ==
LOC: YASAS 11:25 → Y3W 11:39
PROVIDERS: ADMIT Neuromusculoskeletal Medicine & OMM; ATTEND Neuromusculoskeletal Medicine & OMM
PROC: HZ42ZZZ Group Counseling for Substance Abuse Treatment, Cognitive-Behavioral (ICD-10-PCS; principal; 2018-11-12)
DX: F10.20 Alcohol dependence, uncomplicated (principal); F11.20 Opioid dependence, uncomplicated; F17.210 Nicotine dependence, cigarettes, uncomplicated; Z91.013 Allergy to seafood

== ENCOUNTER 2019-11-14 11:06 | Inpatient (IN) | payer OTHER ==
--- NOTE | 2019-11-14 11:26 | BHS.RME ---
Substance Use & Tx History - Substance Use History Alcohol Substance amount: 2-3 pints Frequency of use: Daily Substance route: Oral Date of Last Use: 11/13/19 Heroin Substance amount: one bag Frequency of use: Once a month Substance route: Inhalation (ex: sniffing or snorting) Date of Last Use: 11/12/19 Nicotine Substance amount: 10 cigs Frequency of use: Daily Substance route: Smoking Date of Last Use: 11/14/19 - Last Treatment Date of last treatment: october to nov 2018 detox and rehab at Treatment type: Substance Use Disorder ([place]) Where was last treatment: Detox Physical/Psych/Mental Status - Behavior General Behavior: Increased activity (restlessness, agitation) Eye Contact: Normal - Cooperativeness Cooperativeness: Cooperative - Thinking Thought Processes: Tight - Physical Health Problems Is patient presently having any pain?: No Does patient presently have any injuries (include location): No Does patient currently have a fever: No CIWA Nausea/Vomitin-Mild Nausea/No Vomiting Muscle Tremors: 4-Moderate,w/Arms Extend Anxiety: 3 Agitation: 1-Slight > Activity Paroxysmal Sweats: 3 Orientation: 0-Oriented Tacttile Disturbances: 1-Very Mild Itch/Numbness Auditory Disturbances: 0-None Visual Disturbances: 0-None Headache: 0-None Present CIWA-Ar Total Score: 13
--- NOTE | 2019-11-14 11:32 | HP ---
CIWA Score Nausea/Vomitin-Mild Nausea/No Vomiting Muscle Tremors: 4-Moderate,w/Arms Extend Anxiety: 3 Agitation: 1-Slight > Activity Paroxysmal Sweats: 3 Orientation: 0-Oriented Tacttile Disturbances: 1-Very Mild Itch/Numbness Auditory Disturbances: 0-None Visual Disturbances: 0-None Headache: 0-None Present CIWA-Ar Total Score: 13 - Admission Criteria OASAS Guidelines: Admission for Medically Managed Detox: Requires at least one of the followin. CIWA greater than 12 2. Seizures within the past 24 hours 3. Delirium tremens within the past 24 hours 4. Hallucinations within the past 24 hours 5. Acute intervention needed for co occurring medical disorder 6. Acute intervention needed for co occurring psychiatric disorder 7. Severe withdrawal that cannot be handled at a lower level of care (continued vomiting, continued diarrhea, abnormal vital signs) requiring intravenous medication and/or fluids 8. Admitting History and Physical - Smoking History Smoking history: Current every day smoker Have you smoked in the past 12 months: Yes Aproximately how many cigarettes per day: 10 Admission ROS [facility] Chief Complaint: "I need help to stop drinking." Allergies/Adverse Reactions: Allergies Allergy/AdvReac Type Severity Reaction Status Date / Time No Known Drug Allergies Allergy Verified 11/07/18 13:51 shellfish derived Allergy Swelling Verified 11/07/18 10:46 History of Present Illness: 54 year old male with history of alcohol dependence, opioid dependence on agonist therapy, and nicotine dependence seeking detox. PMH: None Psurg: None Psych: None Patient his homeless but no legal issues pending. 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 Heroin Substance amount: one bag Frequency of use: Once a month Substance route: Inhalation (ex: sniffing or snorting) Date of Last Use: 11/12/19 Nicotine Substance amount: 10 cigs Frequency of use: Daily Substance route: Smoking Date of Last Use: 11/14/19 - Last Treatment Date of last treatment: october to nov 2018 detox and rehab at Treatment type: Substance Use Disorder ([place]) Where was last treatment: Detox Urine Tox: + MTD. Patient meets criteria for detox due to poor recovery environment and relapsed 6 months ago, multiple relapses. Exam Limitations: No Limitations - Ebola screening Have you traveled outside of the country in the last 21 days: No Have you had contact with anyone from an Ebola affected area: No Have you been sick,other than usual withdrawal symptoms: No Do you have a fever: No - Review of Systems Constitutional: Chills, Diaphoresis EENT: reports: No Symptoms Reported Respiratory: reports: No Symptoms reported Cardiac: reports: No Symptoms Reported GI: reports: No Symptoms Reported : reports: No Symptoms Reported Musculoskeletal: reports: No Symptoms Reported Integumentary: reports: No Symptoms Reported Neuro: reports: Headache, Tingling Endocrine: reports: No Symptoms Reported Hematology: reports: No Symptoms Reported Psychiatric: reports: Judgement Intact, Mood/Affect Appropiate, Orientated x3, Agitated, Anxious Other Systems: Reviewed and Negative Patient History - Patient Medical History Hx Asthma: No Hx Chronic Obstructive Pulmonary Disease (COPD): No Hx Cardiac Disorders: No Hx Hypertension: No Hx Seizures: No Hx Diabetes: No Hx Gastrointestinal Disorders: No Hx Genitourinary Disorders: No Hx Sexually Transmitted Disorders: No Hx Renal Disease (ESRD): No Hx Depression: No Hx Suicide Attempt: No Hx Schizophrenia: No - Patient Surgical History Past Surgical History: No Hx Neurologic Surgery: No Hx Cataract Extraction: No Hx Cardiac Surgery: No Hx Lung Surgery: No Hx Breast Surgery: No Hx Breast Biopsy: No Hx Abdominal Surgery: No Hx Appendectomy: No Hx Cholecystectomy: No Hx Genitourinary Surgery: No Hx Section: No Hx Orthopedic Surgery: No Anesthesia Reaction: No - PPD History Previous Implant?: Yes Documented Results: Negative w/proof Implanted On Prior R Admission?: Yes PPD to be Administered?: Yes - Smoking Cessation Smoking history: Current every day smoker Have you smoked in the past 12 months: Yes Aproximately how many cigarettes per day: 10 Hx Chewing Tobacco Use: No Initiated information on smoking cessation: Yes 'Breaking Loose' booklet given: 11/14/19 - Substances abused Alcohol Substance route: Oral Frequency: Daily Amount used: 2-3 pints vodka Age of first use: 18 Date of last use: 11/13/19 Heroin Substance route: Inhalation Frequency: 1-3 times last 30 days Amount used: 1bag Age of first use: 18 Date of last use: 11/12/19 Admission Physical Exam [facility] - Physical General Appearance: Yes: Mild Distress, Irritable, Sweating, Anxious HEENTM: Yes: EOMI, Hearing grossly Normal, Normal ENT Inspection, Normocephalic, Normal Voice, [place], Pharynx Normal, Tm's normal Respiratory: Yes: Chest Non-Tender, Lungs Clear, Normal Breath Sounds, No Respiratory Distress, No Accessory Muscle Use Neck: Yes: No masses,lesions,Nodules, Trachea in good position Breast: Yes: Within Normal Limits Cardiology: Yes: Regular Rhythm, Regular Rate, S1, S2 Abdominal: Yes: Normal Bowel Sounds, Non Tender, Flat, Soft Genitourinary: Yes: Within Normal Limits Back: Yes: Normal Inspection Musculoskeletal: Yes: full range of Motion, Gait Steady, Pelvis Stable Extremities: Yes: Normal Capillary Refill, Normal Inspection, Normal Range of Motion, Non-Tender Neurological: Yes: 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, Fully Oriented, Alert, Motor Strength 5/5, Normal Mood/Affect, Normal Response Integumentary: Yes: Normal Color, Warm Lymphatic: Yes: Within Normal Limits - Diagnostic (1) Alcohol dependence with withdrawal, uncomplicated Current Visit: Yes Status: Acute (2) Heroin abuse Current Visit: Yes Status: Chronic (3) Methadone maintenance therapy patient Current Visit: Yes Status: Chronic (4) Nicotine dependence Current Visit: Yes Status: Chronic Cleared for Admission [facility] - Detox or Rehab [facility] Level of Care: Medically Managed Detox Regimen/Protocol: Librium Claeared for Rehab Admission: No Screened but not Admitted - Documentation of Visit Screened but not Admitted: No Breathalyzer - Breathalyzer Breathalyzer: 0.032 Vital Signs - Vital Signs Vital signs refused: No Temperature: 98.3 F Pulse Rate: 74 Respiratory Rate: 18 Blood Pressure: 137/83 BP Location: Left Arm Blood Pressure position: Sitting - Height Height: 5 ft 4 in - Weight Weight: 122 lb Weight measurement method: Standing scale - BMI Body Mass Index (BMI): 20.9 - Bowel Function Bowel Movement: No Urine Drug Screen - Test Device Lot number: [id number] Expiration date: 08/11/20 - Control Is test valid?: Yes - Results Drug screen NEGATIVE: No Urine drug screen results: MTD-Methadone Inpatient Rehab Admission - Rehab Decision to Admit Inpatient rehab admission?: No
[2019-11-14 11:41] VITALS: BMI 20.9
[2019-11-14] MEDS ORDERED: chlordiazePOXIDE HCL 25 MG CAPSULE PO PRN (11:41)
[2019-11-14] MEDS ORDERED: MAG HYDROX/AL HYDROX/SIMETH 30 ML UNIT-DOSE CUP PO PRN (11:41)
[2019-11-14] MEDS ORDERED: MAGNESIUM HYDROX 2400MG/30ML ORAL SUSPENSION 30 ML CUP PO PRN (11:41)
[2019-11-14] MEDS ORDERED: METHOCARBAMOL 500 MG TABLET PO PRN (11:41)
[2019-11-14] MEDS ORDERED: IBUPROFEN 400 MG TABLET (FP) PO PRN (11:41)
[2019-11-14] MEDS ORDERED: MENTHOL/PHENOL 1 EACH UD MM PRN (11:41)
[2019-11-14] MEDS ORDERED: ACETAMINOPHEN 325 MG TABLET (FP) PO PRN ×2 (11:41)
[2019-11-14] MEDS ORDERED: MAGNESIUM CITRATE 300 ML BOTTLE PO PRN (11:41)
[2019-11-14] MEDS ORDERED: BISMUTH SUBSALICYLATE 524 MG/30 ML UD PO PRN (11:41)
[2019-11-14] MEDS ORDERED: ONDANSETRON *ODT* 4 MG TABLET SL ONE (12:30)
[2019-11-14] MEDS: PRENATAL VITAMINS W/ FOLIC ACID TABLET (FP) PO SCH (12:44)
[2019-11-14] MEDS: NICOTINE 7 MG/24 HOURS TOPICAL PATCH TD SCH (12:45)
[2019-11-14] MEDS: chlordiazePOXIDE HCL 25 MG CAPSULE PO SCH ×3 (12:45→22:11)
[2019-11-14] MEDS ORDERED: hydrOXYzine PAMOATE 25 MG CAPSULE (FP) PO SCH (14:00)
[2019-11-14] MEDS: hydrOXYzine PAMOATE 25 MG CAPSULE (FP) PO PRN (14:09)
[2019-11-14 15:28] LABS: HEMATOCRIT 44.8 % (35.4-49); HEMOGLOBIN 14.6 GM/dL (11.7-16.9); MCH 30.2 pg (25.7-33.7); MCHC 32.7 g/dl (32.0-35.9); MEAN CELL VOLUME 92.4 fl (80-96); MEAN PLT VOLUME 9.9 fl (7.5-11.1); PLATELET COUNT 237 K/MM3 (134-434); RBC 4.85 M/mm3 (4.00-5.60); RDW 13.8 % (11.9-15.9); WHITE BLOOD COUNT 9.2 K/mm3 (4.0-10.0)
[2019-11-14 15:36] LABS: ALBUMIN 4.1 g/dl (3.4-5.0); BILIRUBIN,TOTAL 0.4 mg/dL (0.2-1); BLOOD UREA NITROGEN 9.9 mg/dL (7-18); CREATININE 0.7 mg/dL (0.55-1.3); POTASSIUM 3.8 mmol/L (3.5-5.1); TOT PROT 8.1 g/dl (6.4-8.2)
[2019-11-14] MEDS: THIAMINE HCL 100 MG TABLET (FP) PO SCH (22:11)
[2019-11-14] MEDS: MELATONIN 5 MG TABLETS PO SCH (22:11)
[2019-11-15] MEDS: chlordiazePOXIDE HCL 25 MG CAPSULE PO SCH ×4 (05:27→22:08)
[2019-11-15] MEDS: METHADONE HCL 10 MG TABLET PO SCH (05:28)
[2019-11-15] MEDS ORDERED: METHADONE HCL 10 MG TABLET PO SCH (06:00)
[2019-11-15] MEDS: NICOTINE 7 MG/24 HOURS TOPICAL PATCH TD SCH (10:23)
[2019-11-15] MEDS: PRENATAL VITAMINS W/ FOLIC ACID TABLET (FP) PO SCH (10:23)
--- NOTE | 2019-11-15 13:36 | PN ---
[facility] CIWA - CIWA Score Nausea/Vomitin-No Nausea/No Vomiting Muscle Tremors: 3 Anxiety: 2 Agitation: 2 Paroxysmal Sweats: 3 Orientation: 0-Oriented Tacttile Disturbances: 0-None Auditory Disturbances: 0-None Visual Disturbances: 0-None Headache: 0-None Present CIWA-Ar Total Score: 10 S Progress Note (SOAP) Subjective: dry skin sweats shakes interrupted sleep poor appetite body aches Objective: 11/15/19 13:35 Vital Signs Temperature 98.6 F 11/15/19 08:36 Pulse Rate 56 L 11/15/19 08:36 Respiratory Rate 16 11/15/19 08:36 Blood Pressure 113/64 11/15/19 08:36 O2 Sat by Pulse Oximetry (%) 97 11/15/19 08:36 Laboratory Tests 11/14/19 11/14/19 11/14/19 11:50 11:50 11:50 WBC 9.2 RBC 4.85 Hgb 14.6 Hct 44.8 MCV 92.4 MCH 30.2 MCHC 32.7 RDW 13.8 Plt Count 237 D MPV 9.9 Sodium 138 Potassium 3.8 Chloride 102 Carbon Dioxide 29 Anion Gap 7 L BUN 9.9 Creatinine 0.7 Est GFR (CKD-EPI)AfAm 124.00 Est GFR (CKD-EPI)NonAf 106.99 Random Glucose 74 Calcium 9.0 Total Bilirubin 0.4 AST 69 H ALT 59 Alkaline Phosphatase 69 Total Protein 8.1 Albumin 4.1 Syphilis Serology Non-reactive COVID-19 (LOC) HIV Ag/Ab Combo Qual 11/14/19 11/14/19 13:10 13:10 WBC RBC Hgb Hct MCV MCH MCHC RDW Plt Count MPV Sodium Potassium Chloride Carbon Dioxide Anion Gap BUN Creatinine Est GFR (CKD-EPI)AfAm Est GFR (CKD-EPI)NonAf Random Glucose Calcium Total Bilirubin AST ALT Alkaline Phosphatase Total Protein Albumin Syphilis Serology COVID-19 (LOC) Not detected HIV Ag/Ab Combo Qual Negative labs noted aaox3 ambulating no acute distress Assessment: 11/15/19 13:36 withdrawals Plan: continue detox hytone ordered ensure bid
[2019-11-15] MEDS: hydrOXYzine PAMOATE 25 MG CAPSULE (FP) PO PRN (14:18)
[2019-11-15] MEDS: HYDROCORTISONE 1% TOPICAL CREAM 30 GM TUBE TP SCH ×3 (15:32→23:29)
[2019-11-15] MEDS: THIAMINE HCL 100 MG TABLET (FP) PO SCH (22:07)
[2019-11-15] MEDS: MELATONIN 5 MG TABLETS PO SCH (22:08)
[2019-11-16] MEDS: METHADONE HCL 10 MG TABLET PO SCH (05:12)
[2019-11-16] MEDS: chlordiazePOXIDE HCL 25 MG CAPSULE PO SCH ×4 (05:12→22:21)
[2019-11-16] MEDS: HYDROCORTISONE 1% TOPICAL CREAM 30 GM TUBE TP SCH ×4 (10:13→22:21)
[2019-11-16] MEDS: PRENATAL VITAMINS W/ FOLIC ACID TABLET (FP) PO SCH (10:14)
[2019-11-16] MEDS: NICOTINE 7 MG/24 HOURS TOPICAL PATCH TD SCH (10:15)
--- NOTE | 2019-11-16 11:05 | PN ---
[facility] CIWA - CIWA Score Nausea/Vomitin-No Nausea/No Vomiting Muscle Tremors: 2 Anxiety: 1-Mildly Anxious Agitation: 2 Paroxysmal Sweats: 1-Minimal Palms Moist Orientation: 0-Oriented Tacttile Disturbances: 0-None Auditory Disturbances: 0-None Visual Disturbances: 0-None Headache: 0-None Present CIWA-Ar Total Score: 6 [facility] Progress Note (SOAP) Subjective: sweats tired interrupted sleep Objective: 11/16/19 11:05 Vital Signs Temperature 98.6 F 11/16/19 09:43 Pulse Rate 59 L 11/16/19 09:43 Respiratory Rate 17 11/16/19 09:43 Blood Pressure 109/69 11/16/19 09:43 O2 Sat by Pulse Oximetry (%) 98 11/16/19 09:43 Laboratory Tests 11/14/19 11/14/19 11/14/19 11:50 11:50 11:50 WBC 9.2 RBC 4.85 Hgb 14.6 Hct 44.8 MCV 92.4 MCH 30.2 MCHC 32.7 RDW 13.8 Plt Count 237 D MPV 9.9 Sodium 138 Potassium 3.8 Chloride 102 Carbon Dioxide 29 Anion Gap 7 L BUN 9.9 Creatinine 0.7 Est GFR (CKD-EPI)AfAm 124.00 Est GFR (CKD-EPI)NonAf 106.99 Random Glucose 74 Calcium 9.0 Total Bilirubin 0.4 AST 69 H ALT 59 Alkaline Phosphatase 69 Total Protein 8.1 Albumin 4.1 Syphilis Serology Non-reactive COVID-19 (LOC) HIV Ag/Ab Combo Qual 11/14/19 11/14/19 13:10 13:10 WBC RBC Hgb Hct MCV MCH MCHC RDW Plt Count MPV Sodium Potassium Chloride Carbon Dioxide Anion Gap BUN Creatinine Est GFR (CKD-EPI)AfAm Est GFR (CKD-EPI)NonAf Random Glucose Calcium Total Bilirubin AST ALT Alkaline Phosphatase Total Protein Albumin Syphilis Serology COVID-19 (LOC) Not detected HIV Ag/Ab Combo Qual Negative labs noted aaox3 ambulating no acute distress Assessment: 11/16/19 11:05 withdrawals Plan: continue detox
[2019-11-16] MEDS: hydrOXYzine PAMOATE 25 MG CAPSULE (FP) PO PRN (17:52)
[2019-11-16] MEDS: THIAMINE HCL 100 MG TABLET (FP) PO SCH (22:21)
[2019-11-16] MEDS: MELATONIN 5 MG TABLETS PO SCH (22:21)
[2019-11-17] MEDS ORDERED: chlordiazePOXIDE HCL 10 MG CAPSULE PO PRN
[2019-11-17] MEDS: METHADONE HCL 10 MG TABLET PO SCH (05:07)
[2019-11-17] MEDS: chlordiazePOXIDE HCL 10 MG CAPSULE PO SCH ×4 (05:07→22:14)
[2019-11-17] MEDS: PRENATAL VITAMINS W/ FOLIC ACID TABLET (FP) PO SCH (10:04)
[2019-11-17] MEDS: HYDROCORTISONE 1% TOPICAL CREAM 30 GM TUBE TP SCH ×4 (10:04→23:43)
[2019-11-17] MEDS: NICOTINE 7 MG/24 HOURS TOPICAL PATCH TD SCH (10:04)
--- NOTE | 2019-11-17 12:28 | PN ---
[facility] CIWA - CIWA Score Nausea/Vomitin-No Nausea/No Vomiting Muscle Tremors: 2 Anxiety: 2 Agitation: 2 Paroxysmal Sweats: 2 Orientation: 0-Oriented Tacttile Disturbances: 0-None Auditory Disturbances: 0-None Visual Disturbances: 0-None Headache: 0-None Present CIWA-Ar Total Score: 8 [facility] Progress Note (SOAP) Subjective: Complaints of anxiety, sweats, agitation and shakes. Objective: 11/17/19 12:27 Vital Signs 11/17/19 11/17/19 05:05 10:01 Temperature 97.3 F L 98.4 F Pulse Rate 61 63 Respiratory 16 18 Rate Blood Pressure 108/69 107/66 O2 Sat by Pulse 97 97 Oximetry (%) Laboratory Last Values WBC 9.2 K/mm3 (4.0-10.0) 11/14/19 11:50 RBC 4.85 M/mm3 (4.00-5.60) 11/14/19 11:50 Hgb 14.6 GM/dL (11.7-16.9) 11/14/19 11:50 Hct 44.8 % (35.4-49) 11/14/19 11:50 MCV 92.4 fl (80-96) 11/14/19 11:50 MCH 30.2 pg (25.7-33.7) 11/14/19 11:50 MCHC 32.7 g/dl (32.0-35.9) 11/14/19 11:50 RDW 13.8 % (11.9-15.9) 11/14/19 11:50 Plt Count 237 K/MM3 (134-434) D 11/14/19 11:50 MPV 9.9 fl (7.5-11.1) 11/14/19 11:50 Sodium 138 mmol/L (136-145) 11/14/19 11:50 Potassium 3.8 mmol/L (3.5-5.1) 11/14/19 11:50 Chloride 102 mmol/L (98-107) 11/14/19 11:50 Carbon Dioxide 29 mmol/L (21-32) 11/14/19 11:50 Anion Gap 7 MMOL/L (8-16) L 11/14/19 11:50 BUN 9.9 mg/dL (7-18) 11/14/19 11:50 Creatinine 0.7 mg/dL (0.55-1.3) 11/14/19 11:50 Est GFR (CKD-EPI)AfAm 124.00 11/14/19 11:50 Est GFR (CKD-EPI)NonAf 106.99 11/14/19 11:50 Random Glucose 74 mg/dL (74-106) 11/14/19 11:50 Calcium 9.0 mg/dL (8.5-10.1) 11/14/19 11:50 Total Bilirubin 0.4 mg/dL (0.2-1) 11/14/19 11:50 AST 69 U/L (15-37) H 11/14/19 11:50 ALT 59 U/L (13-61) 11/14/19 11:50 Alkaline Phosphatase 69 U/L (45-117) 11/14/19 11:50 Total Protein 8.1 g/dl (6.4-8.2) 11/14/19 11:50 Albumin 4.1 g/dl (3.4-5.0) 11/14/19 11:50 Syphilis Serology Non-reactive (NONREACTIVE) 11/14/19 11:50 COVID-19 (LOC) Not detected (Not Detected) 11/14/19 13:10 HIV Ag/Ab Combo Qual Negative (NEGATIVE) 11/14/19 13:10 Labs noted. Assessment: Alert and oriented x 3, in no acute respiratory distress. Full ROM, ambulating in unit without assistance. Skin warm to touch without any lesions. Withdrawal symptoms. Plan: Continue detox protocol.
[2019-11-17] MEDS: NICOTINE POLACRILEX 2 MG GUM BUC PRN ×3 (13:31→22:14)
--- NOTE | 2019-11-17 15:19 | PN ---
[facility] Progress Note Note: I was called by Rn to evaluate patient because he hit fore head on the night stand drawer. Patient was seen and examined, alert and oriented x3. Denies any LOC or headache.Stated he hit his forehead while bending down. Mild swelling noted to right eye brow. Ice applied.
[2019-11-17] MEDS: hydrOXYzine PAMOATE 25 MG CAPSULE (FP) PO PRN ×2 (17:20→22:13)
[2019-11-17] MEDS: THIAMINE HCL 100 MG TABLET (FP) PO SCH (22:14)
[2019-11-17] MEDS: MELATONIN 5 MG TABLETS PO SCH (22:14)
[2019-11-18] MEDS: chlordiazePOXIDE HCL 10 MG CAPSULE PO SCH ×2 (05:36→17:43)
[2019-11-18] MEDS: METHADONE HCL 10 MG TABLET PO SCH (05:36)
[2019-11-18] MEDS: NICOTINE 7 MG/24 HOURS TOPICAL PATCH TD SCH (10:11)
[2019-11-18] MEDS: HYDROCORTISONE 1% TOPICAL CREAM 30 GM TUBE TP SCH ×4 (10:11→22:31)
[2019-11-18] MEDS: PRENATAL VITAMINS W/ FOLIC ACID TABLET (FP) PO SCH (10:11)
[2019-11-18] MEDS: hydrOXYzine PAMOATE 25 MG CAPSULE (FP) PO PRN ×3 (10:12→22:29)
--- NOTE | 2019-11-18 11:40 | PN ---
[facility] CIWA - CIWA Score Nausea/Vomitin-No Nausea/No Vomiting Muscle Tremors: 1-None Visible, but [place] Anxiety: 1-Mildly Anxious Agitation: 0-Normal Activity Paroxysmal Sweats: 2 Orientation: 0-Oriented Tacttile Disturbances: 0-None Auditory Disturbances: 0-None Visual Disturbances: 0-None Headache: 0-None Present CIWA-Ar Total Score: 4 [facility] Progress Note (SOAP) Subjective: Complaints of mild anxiety, tremors and sweats. Objective: 11/18/19 11:39 Vital Signs 11/18/19 11/18/19 05:34 08:42 Temperature 97.3 F L 97.8 F Pulse Rate 63 60 Respiratory 16 18 Rate Blood Pressure 111/75 115/63 O2 Sat by Pulse 97 96 Oximetry (%) Laboratory Last Values WBC 9.2 K/mm3 (4.0-10.0) 11/14/19 11:50 RBC 4.85 M/mm3 (4.00-5.60) 11/14/19 11:50 Hgb 14.6 GM/dL (11.7-16.9) 11/14/19 11:50 Hct 44.8 % (35.4-49) 11/14/19 11:50 MCV 92.4 fl (80-96) 11/14/19 11:50 MCH 30.2 pg (25.7-33.7) 11/14/19 11:50 MCHC 32.7 g/dl (32.0-35.9) 11/14/19 11:50 RDW 13.8 % (11.9-15.9) 11/14/19 11:50 Plt Count 237 K/MM3 (134-434) D 11/14/19 11:50 MPV 9.9 fl (7.5-11.1) 11/14/19 11:50 Sodium 138 mmol/L (136-145) 11/14/19 11:50 Potassium 3.8 mmol/L (3.5-5.1) 11/14/19 11:50 Chloride 102 mmol/L (98-107) 11/14/19 11:50 Carbon Dioxide 29 mmol/L (21-32) 11/14/19 11:50 Anion Gap 7 MMOL/L (8-16) L 11/14/19 11:50 BUN 9.9 mg/dL (7-18) 11/14/19 11:50 Creatinine 0.7 mg/dL (0.55-1.3) 11/14/19 11:50 Est GFR (CKD-EPI)AfAm 124.00 11/14/19 11:50 Est GFR (CKD-EPI)NonAf 106.99 11/14/19 11:50 Random Glucose 74 mg/dL (74-106) 11/14/19 11:50 Calcium 9.0 mg/dL (8.5-10.1) 11/14/19 11:50 Total Bilirubin 0.4 mg/dL (0.2-1) 11/14/19 11:50 AST 69 U/L (15-37) H 11/14/19 11:50 ALT 59 U/L (13-61) 11/14/19 11:50 Alkaline Phosphatase 69 U/L (45-117) 11/14/19 11:50 Total Protein 8.1 g/dl (6.4-8.2) 11/14/19 11:50 Albumin 4.1 g/dl (3.4-5.0) 11/14/19 11:50 Syphilis Serology Non-reactive (NONREACTIVE) 11/14/19 11:50 COVID-19 (LOC) Not detected (Not Detected) 11/14/19 13:10 HIV Ag/Ab Combo Qual Negative (NEGATIVE) 11/14/19 13:10 Labs noted. Assessment: 11/18/19 11:39 Alert and oriented x 3, in no acute respiratory distress. Full ROM, ambulatory in unit without any assistance. Skin warm to touch without any lesions. Mild withdrawal symptoms. Plan: Continue detox protocol. D/c in AM
[2019-11-18] MEDS: MELATONIN 5 MG TABLETS PO SCH (22:29)
[2019-11-18] MEDS: THIAMINE HCL 100 MG TABLET (FP) PO SCH (22:29)
[2019-11-19] MEDS ORDERED: chlordiazePOXIDE HCL 10 MG CAPSULE PO ONE (05:00)
[2019-11-19] MEDS: METHADONE HCL 10 MG TABLET PO SCH (05:19)
[2019-11-19] MEDS: NICOTINE POLACRILEX 2 MG GUM BUC PRN (10:30)
[2019-11-19] MEDS: HYDROCORTISONE 1% TOPICAL CREAM 30 GM TUBE TP SCH (10:30)
[2019-11-19] MEDS: PRENATAL VITAMINS W/ FOLIC ACID TABLET (FP) PO SCH (10:30)
[2019-11-19] MEDS: NICOTINE 7 MG/24 HOURS TOPICAL PATCH TD SCH (10:30)
[2019-11-19] MEDS: hydrOXYzine PAMOATE 25 MG CAPSULE (FP) PO PRN (10:31)
[2019-11-19 13:23] VITALS: BP 100/62; PULSE 66; TEMP 98.1
--- NOTE | 2019-11-19 13:36 | DS ---
[facility] Detox Discharge Summary Admission Date: 11/14/19 Discharge Date: 11/19/19 - History Present History: Alcohol Dependence, Opioid Dependence, MMTP Additional Comments: Pt is medically cleared and discharged to [facility] for continued management. Pt completed the detox protocol. Pt is encouraged to follow with the rehab protocol which he verbalized understanding. Pt is AOX3, in no acute respiratory distress, Full ROM, and ambulatory. Pertinent Past History: h/o heroin and alcohol use disorder. - Physical Exam Results Vital Signs: Vital Signs Temperature 98.1 F 11/19/19 12:56 Pulse Rate 66 11/19/19 12:56 Respiratory Rate 16 11/19/19 12:56 Blood Pressure 100/62 11/19/19 12:56 O2 Sat by Pulse Oximetry (%) 100 11/19/19 12:56 Pertinent Admission Physical Exam Findings: withdrawal symptoms. - Treatment Hospital Course: Detox Protocol Followed, Detoxed Safely, Responded well, Discharged Condition Good, Rehab Referral Accepted Patient has [facility], [facility] - Medication Discharge Medications: Ambulatory Orders Methadone [Dolophine -] 30 mg PO DAILY 11/14/19 - Diagnosis (1) Alcohol dependence with withdrawal, uncomplicated Current Visit: Yes Status: Acute (2) Heroin abuse Current Visit: Yes Status: Chronic (3) Methadone maintenance therapy patient Current Visit: Yes Status: Chronic (4) Nicotine dependence Current Visit: Yes Status: Chronic (5) Alcohol abuse Current Visit: No Status: Chronic - AMA Did Patient Leave Against Medical Advice: No
== END 2019-11-19 13:15 | disposition other institution (70) | DRG 773 ==
LOC: YASAS 11:06 → Y6N 11:52
PROVIDERS: ADMIT Allergy & Immunology; ATTEND Allergy & Immunology
PROC: HZ2ZZZZ Detoxification Services for Substance Abuse Treatment (ICD-10-PCS; principal; 2019-11-14)
DX: F10.230 Alcohol dependence with withdrawal, uncomplicated (principal); F11.20 Opioid dependence, uncomplicated; F17.210 Nicotine dependence, cigarettes, uncomplicated; R22.9 Localized swelling, mass and lump, unspecified; W22.8XXA Striking against or struck by other objects, initial encounter; Y93.89 Activity, other specified; Y92.230 Patient room in hospital as the place of occurrence of the external cause; Y99.8 Other external cause status; Z91.013 Allergy to seafood; Z59.0 Homelessness
CPT/HCPCS: 36415; 80053; 85027; 86780; 87389; U0003

== ENCOUNTER 2019-11-19 13:23 | Inpatient (IN) | payer OTHER ==
[2019-11-19] MEDS ORDERED: MAGNESIUM HYDROX 2400MG/30ML ORAL SUSPENSION 30 ML CUP PO PRN (13:59)
[2019-11-19] MEDS ORDERED: MAG HYDROX/AL HYDROX/SIMETH 30 ML UNIT-DOSE CUP PO PRN (13:59)
[2019-11-19] MEDS ORDERED: guaiFENesin 200 MG/10 ML 10 ML UNIT-DOSE CUPS PO PRN (13:59)
[2019-11-19] MEDS ORDERED: P-EPHED 60MG/TRIPROLIDI 2.5MG TABLET PO PRN (13:59)
[2019-11-19] MEDS ORDERED: IBUPROFEN 400 MG TABLET (FP) PO PRN (13:59)
[2019-11-19] MEDS ORDERED: ACETAMINOPHEN 325 MG TABLET (FP) PO PRN (13:59)
[2019-11-19] MEDS ORDERED: LOPERAMIDE HCL 2 MG CAPSULE PO PRN (13:59)
[2019-11-19] MEDS ORDERED: MAGNESIUM CITRATE 300 ML BOTTLE PO PRN (13:59)
[2019-11-19] MEDS ORDERED: MENTHOL/PHENOL 1 EACH UD MM PRN (13:59)
--- NOTE | 2019-11-19 13:59 | HP ---
[facility] Rehab Assess/Revision - Admission History Admitted to Rehab from: Date of Admission to Rehab: 11/19/19 - Vital signs Vital Signs: Vital Signs Period Temp Pulse Resp BP Sys/Chaves Pulse Ox Last 24 Hr 97.8 F 78 18 109/68 - Findings Detox History & Physical reviewed: Yes Concur with findings: Yes Comments/Additional Findings: Pt is a 54 y/o male with a hx of [place]-alcohol, heroin who completed rehab on and referred to rehab today. PMHx:Denies. Psych Hx;Depression/anxiety(no meds). Alert o x 3. nad. oob ambulating with steady gait. Skin:no edema,intact Inpatient Rehab Admission - Rehab Decision to Admit Inpatient rehab admission?: Yes - Initial Determination Are CD services needed?: Yes Free of communicable disease: Yes Not in need of hospitalization: Yes - Rehab Admission Criteria Previous failed treatment: Yes Poor recovery environment: Yes Comorbidities: Yes Lacks judgement: Yes Patient is meeting Inpatient Rehab admission criteria:: Yes
[2019-11-19] MEDS: hydrOXYzine PAMOATE 25 MG CAPSULE (FP) PO PRN ×2 (16:42→21:14)
[2019-11-19] MEDS: NICOTINE POLACRILEX 4 MG GUM BUC PRN ×3 (16:42→22:46)
[2019-11-19] MEDS: THIAMINE HCL 100 MG TABLET (FP) PO SCH (21:14)
[2019-11-19] MEDS: MELATONIN 5 MG TABLETS PO SCH (21:14)
[2019-11-19] MEDS: COLLOIDAL OATMEAL 1 BAR EACH TP PRN (21:15)
[2019-11-20] MEDS: NICOTINE POLACRILEX 4 MG GUM BUC PRN ×3 (06:25→16:34)
[2019-11-20] MEDS: METHADONE HCL 10 MG TABLET PO SCH (06:25)
[2019-11-20] MEDS: hydrOXYzine PAMOATE 25 MG CAPSULE (FP) PO PRN ×3 (09:11→21:20)
[2019-11-20] MEDS: PRENATAL VITAMINS W/ FOLIC ACID TABLET (FP) PO SCH (09:11)
[2019-11-20] MEDS: THIAMINE HCL 100 MG TABLET (FP) PO SCH (21:20)
[2019-11-20] MEDS: MELATONIN 5 MG TABLETS PO SCH (21:20)
[2019-11-21] MEDS: METHADONE HCL 10 MG TABLET PO SCH (06:09)
[2019-11-21] MEDS: NICOTINE POLACRILEX 4 MG GUM BUC PRN ×4 (06:10→21:19)
[2019-11-21] MEDS: PRENATAL VITAMINS W/ FOLIC ACID TABLET (FP) PO SCH (10:24)
[2019-11-21] MEDS: hydrOXYzine PAMOATE 25 MG CAPSULE (FP) PO PRN ×3 (10:24→21:19)
[2019-11-21] MEDS: THIAMINE HCL 100 MG TABLET (FP) PO SCH (21:19)
[2019-11-21] MEDS: MELATONIN 5 MG TABLETS PO SCH (21:19)
[2019-11-22] MEDS: METHADONE HCL 10 MG TABLET PO SCH (06:24)
[2019-11-22] MEDS: NICOTINE POLACRILEX 4 MG GUM BUC PRN ×4 (06:25→21:17)
[2019-11-22] MEDS: PRENATAL VITAMINS W/ FOLIC ACID TABLET (FP) PO SCH (09:56)
[2019-11-22] MEDS: hydrOXYzine PAMOATE 25 MG CAPSULE (FP) PO PRN ×3 (09:57→21:17)
[2019-11-22] MEDS: MELATONIN 5 MG TABLETS PO SCH (21:17)
[2019-11-22] MEDS: THIAMINE HCL 100 MG TABLET (FP) PO SCH (21:17)
[2019-11-23] MEDS: METHADONE HCL 10 MG TABLET PO SCH (06:36)
[2019-11-23] MEDS: NICOTINE POLACRILEX 4 MG GUM BUC PRN ×4 (06:37→22:07)
[2019-11-23] MEDS: PRENATAL VITAMINS W/ FOLIC ACID TABLET (FP) PO SCH (10:12)
[2019-11-23] MEDS: hydrOXYzine PAMOATE 25 MG CAPSULE (FP) PO PRN ×3 (10:12→22:06)
[2019-11-23] MEDS: THIAMINE HCL 100 MG TABLET (FP) PO SCH (22:06)
[2019-11-23] MEDS: MELATONIN 5 MG TABLETS PO SCH (22:06)
[2019-11-24] MEDS: METHADONE HCL 10 MG TABLET PO SCH (06:29)
[2019-11-24] MEDS: NICOTINE POLACRILEX 4 MG GUM BUC PRN ×4 (06:30→21:13)
[2019-11-24] MEDS: PRENATAL VITAMINS W/ FOLIC ACID TABLET (FP) PO SCH (09:52)
[2019-11-24] MEDS: hydrOXYzine PAMOATE 25 MG CAPSULE (FP) PO PRN ×3 (09:54→21:12)
[2019-11-24] MEDS: METHOCARBAMOL 500 MG TABLET PO PRN (21:12)
[2019-11-24] MEDS: MELATONIN 5 MG TABLETS PO SCH (21:13)
[2019-11-24] MEDS: THIAMINE HCL 100 MG TABLET (FP) PO SCH (21:14)
[2019-11-25] MEDS: METHADONE HCL 10 MG TABLET PO SCH (06:18)
[2019-11-25] MEDS: NICOTINE POLACRILEX 4 MG GUM BUC PRN ×4 (06:19→21:17)
[2019-11-25] MEDS: PRENATAL VITAMINS W/ FOLIC ACID TABLET (FP) PO SCH (10:04)
[2019-11-25] MEDS: hydrOXYzine PAMOATE 25 MG CAPSULE (FP) PO PRN (10:06)
[2019-11-25] MEDS: hydrOXYzine PAMOATE 50 MG CAPSULE (FP) PO PRN ×2 (16:33→21:16)
[2019-11-25] MEDS: THIAMINE HCL 100 MG TABLET (FP) PO SCH (21:16)
[2019-11-25] MEDS: MELATONIN 5 MG TABLETS PO SCH (21:16)
[2019-11-25] MEDS: METHOCARBAMOL 500 MG TABLET PO PRN (21:16)
[2019-11-26] MEDS: METHADONE HCL 10 MG TABLET PO SCH (06:13)
[2019-11-26] MEDS: NICOTINE POLACRILEX 4 MG GUM BUC PRN ×4 (06:14→21:15)
[2019-11-26] MEDS: hydrOXYzine PAMOATE 50 MG CAPSULE (FP) PO PRN ×3 (10:23→21:14)
[2019-11-26] MEDS: PRENATAL VITAMINS W/ FOLIC ACID TABLET (FP) PO SCH (10:23)
[2019-11-26] MEDS: METHOCARBAMOL 500 MG TABLET PO PRN (17:05)
[2019-11-26] MEDS: THIAMINE HCL 100 MG TABLET (FP) PO SCH (21:12)
[2019-11-26] MEDS: MELATONIN 5 MG TABLETS PO SCH (21:12)
[2019-11-27] MEDS: METHADONE HCL 10 MG TABLET PO SCH (06:16)
[2019-11-27] MEDS: NICOTINE POLACRILEX 4 MG GUM BUC PRN ×4 (06:17→21:19)
[2019-11-27] MEDS: hydrOXYzine PAMOATE 50 MG CAPSULE (FP) PO PRN ×3 (10:18→21:18)
[2019-11-27] MEDS: PRENATAL VITAMINS W/ FOLIC ACID TABLET (FP) PO SCH (10:18)
[2019-11-27] MEDS: THIAMINE HCL 100 MG TABLET (FP) PO SCH (21:18)
[2019-11-27] MEDS: METHOCARBAMOL 500 MG TABLET PO PRN (21:19)
[2019-11-27] MEDS: MELATONIN 5 MG TABLETS PO SCH (21:19)
[2019-11-28] MEDS: NICOTINE POLACRILEX 4 MG GUM BUC PRN ×4 (06:15→21:25)
[2019-11-28] MEDS: METHADONE HCL 10 MG TABLET PO SCH (06:15)
[2019-11-28] MEDS: PRENATAL VITAMINS W/ FOLIC ACID TABLET (FP) PO SCH (09:43)
[2019-11-28] MEDS: hydrOXYzine PAMOATE 50 MG CAPSULE (FP) PO PRN ×3 (09:44→21:25)
[2019-11-28] MEDS: MELATONIN 5 MG TABLETS PO SCH (21:24)
[2019-11-28] MEDS: METHOCARBAMOL 500 MG TABLET PO PRN (21:25)
[2019-11-28] MEDS: THIAMINE HCL 100 MG TABLET (FP) PO SCH (21:25)
[2019-11-29] MEDS: METHADONE HCL 10 MG TABLET PO SCH (06:06)
[2019-11-29] MEDS: NICOTINE POLACRILEX 4 MG GUM BUC PRN ×4 (06:07→21:48)
[2019-11-29] MEDS: PRENATAL VITAMINS W/ FOLIC ACID TABLET (FP) PO SCH (10:30)
[2019-11-29] MEDS: hydrOXYzine PAMOATE 50 MG CAPSULE (FP) PO PRN ×3 (10:31→21:47)
[2019-11-29] MEDS: MELATONIN 5 MG TABLETS PO SCH (21:47)
[2019-11-29] MEDS: METHOCARBAMOL 500 MG TABLET PO PRN (21:47)
[2019-11-29] MEDS: THIAMINE HCL 100 MG TABLET (FP) PO SCH (21:47)
[2019-11-30] MEDS: METHADONE HCL 10 MG TABLET PO SCH (06:18)
[2019-11-30] MEDS: NICOTINE POLACRILEX 4 MG GUM BUC PRN ×4 (06:18→21:28)
[2019-11-30] MEDS: hydrOXYzine PAMOATE 50 MG CAPSULE (FP) PO PRN ×3 (10:21→21:27)
[2019-11-30] MEDS: PRENATAL VITAMINS W/ FOLIC ACID TABLET (FP) PO SCH (10:21)
[2019-11-30] MEDS: METHOCARBAMOL 500 MG TABLET PO PRN ×2 (10:22→21:26)
[2019-11-30] MEDS: MELATONIN 5 MG TABLETS PO SCH (21:26)
[2019-11-30] MEDS: THIAMINE HCL 100 MG TABLET (FP) PO SCH (21:26)
[2019-12-01] MEDS: NICOTINE POLACRILEX 4 MG GUM BUC PRN ×3 (06:08→21:32)
[2019-12-01] MEDS: METHADONE HCL 10 MG TABLET PO SCH (06:08)
[2019-12-01] MEDS: hydrOXYzine PAMOATE 50 MG CAPSULE (FP) PO PRN ×2 (09:55→21:32)
[2019-12-01] MEDS: PRENATAL VITAMINS W/ FOLIC ACID TABLET (FP) PO SCH (09:55)
[2019-12-01] MEDS: METHOCARBAMOL 500 MG TABLET PO PRN (21:31)
[2019-12-01] MEDS: MELATONIN 5 MG TABLETS PO SCH (21:32)
[2019-12-01] MEDS: THIAMINE HCL 100 MG TABLET (FP) PO SCH (21:32)
[2019-12-02] MEDS: NICOTINE POLACRILEX 4 MG GUM BUC PRN ×4 (06:16→21:35)
[2019-12-02] MEDS: METHADONE HCL 10 MG TABLET PO SCH (06:16)
[2019-12-02] MEDS: PRENATAL VITAMINS W/ FOLIC ACID TABLET (FP) PO SCH (10:03)
[2019-12-02] MEDS: hydrOXYzine PAMOATE 50 MG CAPSULE (FP) PO PRN ×3 (10:04→21:34)
[2019-12-02] MEDS: THIAMINE HCL 100 MG TABLET (FP) PO SCH (21:34)
[2019-12-02] MEDS: MELATONIN 5 MG TABLETS PO SCH (21:34)
[2019-12-02] MEDS: METHOCARBAMOL 500 MG TABLET PO PRN (21:35)
[2019-12-03] MEDS: METHADONE HCL 10 MG TABLET PO SCH (07:55)
[2019-12-03] MEDS: NICOTINE POLACRILEX 4 MG GUM BUC PRN ×3 (07:56→21:25)
[2019-12-03] MEDS: PRENATAL VITAMINS W/ FOLIC ACID TABLET (FP) PO SCH (10:29)
[2019-12-03] MEDS: hydrOXYzine PAMOATE 50 MG CAPSULE (FP) PO PRN ×2 (10:30→21:24)
[2019-12-03] MEDS: THIAMINE HCL 100 MG TABLET (FP) PO SCH (21:24)
[2019-12-03] MEDS: COLLOIDAL OATMEAL 1 BAR EACH TP PRN (21:24)
[2019-12-03] MEDS: MELATONIN 5 MG TABLETS PO SCH (21:25)
[2019-12-04] MEDS: METHADONE HCL 10 MG TABLET PO SCH (06:20)
[2019-12-04] MEDS: NICOTINE POLACRILEX 4 MG GUM BUC PRN ×4 (06:21→21:17)
[2019-12-04] MEDS: PRENATAL VITAMINS W/ FOLIC ACID TABLET (FP) PO SCH (10:17)
[2019-12-04] MEDS: METHOCARBAMOL 500 MG TABLET PO PRN ×2 (10:17→21:16)
[2019-12-04] MEDS: hydrOXYzine PAMOATE 50 MG CAPSULE (FP) PO PRN ×3 (10:17→21:16)
[2019-12-04] MEDS: THIAMINE HCL 100 MG TABLET (FP) PO SCH (21:16)
[2019-12-04] MEDS: MELATONIN 5 MG TABLETS PO SCH (21:16)
[2019-12-05] MEDS: METHADONE HCL 10 MG TABLET PO SCH (06:09)
[2019-12-05] MEDS: NICOTINE POLACRILEX 4 MG GUM BUC PRN ×3 (06:11→21:22)
[2019-12-05] MEDS: METHOCARBAMOL 500 MG TABLET PO PRN ×2 (09:45→21:22)
[2019-12-05] MEDS: hydrOXYzine PAMOATE 50 MG CAPSULE (FP) PO PRN ×2 (09:45→21:22)
[2019-12-05] MEDS: PRENATAL VITAMINS W/ FOLIC ACID TABLET (FP) PO SCH (09:45)
[2019-12-05] MEDS: MELATONIN 5 MG TABLETS PO SCH (21:22)
[2019-12-05] MEDS: THIAMINE HCL 100 MG TABLET (FP) PO SCH (21:22)
[2019-12-06] MEDS: METHADONE HCL 10 MG TABLET PO SCH (06:05)
[2019-12-06] MEDS: NICOTINE POLACRILEX 4 MG GUM BUC PRN ×3 (06:06→21:16)
[2019-12-06] MEDS: PRENATAL VITAMINS W/ FOLIC ACID TABLET (FP) PO SCH (10:21)
[2019-12-06] MEDS: hydrOXYzine PAMOATE 50 MG CAPSULE (FP) PO PRN ×2 (10:21→21:16)
[2019-12-06] MEDS: METHOCARBAMOL 500 MG TABLET PO PRN ×2 (10:21→21:16)
[2019-12-06] MEDS: THIAMINE HCL 100 MG TABLET (FP) PO SCH (21:16)
[2019-12-06] MEDS: MELATONIN 5 MG TABLETS PO SCH (21:16)
[2019-12-07] MEDS: METHADONE HCL 10 MG TABLET PO SCH (06:01)
[2019-12-07] MEDS: NICOTINE POLACRILEX 4 MG GUM BUC PRN ×3 (06:02→21:20)
[2019-12-07] MEDS: METHOCARBAMOL 500 MG TABLET PO PRN ×2 (10:11→21:19)
[2019-12-07] MEDS: hydrOXYzine PAMOATE 50 MG CAPSULE (FP) PO PRN ×2 (10:11→21:19)
[2019-12-07] MEDS: PRENATAL VITAMINS W/ FOLIC ACID TABLET (FP) PO SCH (10:11)
[2019-12-07] MEDS: MELATONIN 5 MG TABLETS PO SCH (21:19)
[2019-12-07] MEDS: THIAMINE HCL 100 MG TABLET (FP) PO SCH (21:19)
[2019-12-08] MEDS: METHADONE HCL 10 MG TABLET PO SCH (06:23)
[2019-12-08] MEDS: NICOTINE POLACRILEX 4 MG GUM BUC PRN ×3 (06:24→21:19)
[2019-12-08] MEDS: PRENATAL VITAMINS W/ FOLIC ACID TABLET (FP) PO SCH (10:01)
[2019-12-08] MEDS: hydrOXYzine PAMOATE 50 MG CAPSULE (FP) PO PRN ×2 (10:01→21:19)
[2019-12-08] MEDS: METHOCARBAMOL 500 MG TABLET PO PRN (21:19)
[2019-12-08] MEDS: MELATONIN 5 MG TABLETS PO SCH (21:19)
[2019-12-08] MEDS: THIAMINE HCL 100 MG TABLET (FP) PO SCH (21:19)
[2019-12-09] MEDS: METHADONE HCL 10 MG TABLET PO SCH (06:05)
[2019-12-09] MEDS: NICOTINE POLACRILEX 4 MG GUM BUC PRN ×2 (10:01→21:24)
[2019-12-09] MEDS: PRENATAL VITAMINS W/ FOLIC ACID TABLET (FP) PO SCH (10:01)
[2019-12-09] MEDS: hydrOXYzine PAMOATE 50 MG CAPSULE (FP) PO PRN ×2 (10:01→21:23)
[2019-12-09] MEDS: METHOCARBAMOL 500 MG TABLET PO PRN (21:23)
[2019-12-09] MEDS: MELATONIN 5 MG TABLETS PO SCH (21:23)
[2019-12-09] MEDS: THIAMINE HCL 100 MG TABLET (FP) PO SCH (21:23)
[2019-12-10] MEDS: NICOTINE POLACRILEX 4 MG GUM BUC PRN ×4 (06:16→21:29)
[2019-12-10] MEDS ORDERED: METHADONE HCL 10 MG TABLET PO SCH (07:00)
[2019-12-10] MEDS: METHOCARBAMOL 500 MG TABLET PO PRN ×2 (10:27→21:28)
[2019-12-10] MEDS: hydrOXYzine PAMOATE 50 MG CAPSULE (FP) PO PRN ×2 (10:27→21:28)
[2019-12-10] MEDS: PRENATAL VITAMINS W/ FOLIC ACID TABLET (FP) PO SCH (10:27)
[2019-12-10] MEDS: THIAMINE HCL 100 MG TABLET (FP) PO SCH (21:28)
[2019-12-10] MEDS: MELATONIN 5 MG TABLETS PO SCH (21:28)
[2019-12-11] MEDS: NICOTINE POLACRILEX 4 MG GUM BUC PRN (06:20)
[2019-12-11 06:39] VITALS: BP 135/82; PULSE 63; TEMP 97.7
--- NOTE | 2019-12-11 15:52 | DS ---
[facility] Rehab Discharge Summary - [facility] Rehab Discharge Summary Admission Date: 11/19/19 Discharge Date: 12/11/19 - History Present History: Alcohol dependence, MMTP Pertinent Past History: Denies - Discharge Physical Exam Vital Signs: Vital Signs Temperature 97.7 F 12/11/19 06:18 Pulse Rate 63 12/11/19 06:18 Respiratory Rate 18 12/11/19 06:18 Blood Pressure 135/82 12/11/19 06:18 O2 Sat by Pulse Oximetry (%) 95 12/11/19 06:18 Alert o x 3 nad oob ambulating with steady gait MSK:Active FROM,all limbs, no edema skin:warm, intact Pertinent Admission Physical Exam Findings: Unremarkable - Treatment Discharge Condition: Discharge condition good, Rehabilitated safely, Responded well, Outpatient referral accepted Hospital Course: CD aftercare accepted to [facility] - Medication Discharge Medications: Ambulatory Orders Methadone [Dolophine -] 30 mg PO DAILY 11/14/19 - Medication-Assisted Treatment (MAT) Medication-Assisted Treatment (MAT): No - Discharge Instructions Diet, activity, other medical instructions: Diet:regular Activity: oob ad olu Other medical instructions:follow up with primary care as needed. - Diagnosis (1) Alcohol use disorder Status: Chronic (2) Methadone maintenance therapy patient Status: Chronic (3) Nicotine dependence Status: Chronic Qualifiers: Nicotine product type: cigarettes Substance use status: uncomplicated Qualified Code(s): F17.210 - Nicotine dependence, cigarettes, uncomplicated - Follow-up Referral Minutes to complete discharge: 25 - AMA Did Patient Leave Against Medical Advice: No
== END 2019-12-11 08:55 | disposition home or self-care (01) | DRG 772 ==
LOC: YASAS 13:23 → Y5N 13:24
PROVIDERS: ADMIT Allergy & Immunology; ATTEND Allergy & Immunology
PROC: HZ42ZZZ Group Counseling for Substance Abuse Treatment, Cognitive-Behavioral (ICD-10-PCS; principal; 2019-11-19)
DX: F10.20 Alcohol dependence, uncomplicated (principal); F11.20 Opioid dependence, uncomplicated; F17.210 Nicotine dependence, cigarettes, uncomplicated; F32.9 Major depressive disorder, single episode, unspecified; F41.9 Anxiety disorder, unspecified; Z91.013 Allergy to seafood; Z59.0 Homelessness

== ENCOUNTER 2020-05-04 09:52 | Inpatient (IN) | payer OTHER ==
[2020-05-04 10:43] VITALS: BMI 25.0
[2020-05-04] MEDS ORDERED: MAG HYDROX/AL HYDROX/SIMETH 30 ML UNIT-DOSE CUP PO PRN (11:15)
[2020-05-04] MEDS ORDERED: ONDANSETRON *ODT* 4 MG TABLET SL PRN (11:15)
[2020-05-04] MEDS ORDERED: MAGNESIUM HYDROX 2400MG/30ML ORAL SUSPENSION 30 ML CUP PO PRN (11:15)
[2020-05-04] MEDS ORDERED: ACETAMINOPHEN 325 MG TABLET (FP) PO PRN ×2 (11:15)
[2020-05-04] MEDS ORDERED: IBUPROFEN 400 MG TABLET (FP) PO PRN (11:15)
[2020-05-04] MEDS ORDERED: METHOCARBAMOL 500 MG TABLET PO PRN (11:15)
[2020-05-04] MEDS ORDERED: MAGNESIUM CITRATE 300 ML BOTTLE PO PRN (11:15)
[2020-05-04] MEDS ORDERED: chlordiazePOXIDE HCL 25 MG CAPSULE PO PRN (11:15)
[2020-05-04] MEDS ORDERED: BISMUTH SUBSALICYLATE 524 MG/30 ML UD PO PRN (11:15)
[2020-05-04] MEDS ORDERED: MENTHOL/PHENOL 1 EACH UD MM PRN (11:15)
[2020-05-04] MEDS: hydrOXYzine PAMOATE 25 MG CAPSULE (FP) PO SCH ×3 (13:14→22:17)
[2020-05-04] MEDS: chlordiazePOXIDE HCL 25 MG CAPSULE PO SCH ×2 (18:18→22:17)
[2020-05-04] MEDS: NICOTINE POLACRILEX 2 MG GUM BUC PRN ×2 (18:20→22:19)
[2020-05-04] MEDS: MELATONIN 5 MG TABLETS PO SCH (22:17)
[2020-05-04] MEDS: THIAMINE HCL 100 MG TABLET (FP) PO SCH (22:17)
[2020-05-05] MEDS: chlordiazePOXIDE HCL 25 MG CAPSULE PO SCH ×4 (05:10→22:10)
[2020-05-05] MEDS: hydrOXYzine PAMOATE 25 MG CAPSULE (FP) PO SCH ×5 (05:11→22:11)
[2020-05-05] MEDS: PRENATAL VITAMINS W/ FOLIC ACID TABLET (FP) PO SCH (10:16)
[2020-05-05] MEDS: METHADONE HCL 10 MG TABLET PO SCH (10:16)
[2020-05-05] MEDS: NICOTINE POLACRILEX 2 MG GUM BUC PRN ×3 (10:18→22:13)
[2020-05-05 12:17] LABS: POTASSIUM 4.3 mmol/L (3.5-5.1)
[2020-05-05 12:22] LABS: HEMATOCRIT 41.8 % (35.4-49); HEMOGLOBIN 13.8 GM/dL (11.7-16.9); MCH 28.6 pg (25.7-33.7); MEAN CELL VOLUME 86.6 fl (80-96); MEAN PLT VOLUME 9.9 fl (7.5-11.1); PLATELET COUNT 242 K/MM3 (134-434); RBC 4.83 M/mm3 (4.00-5.60); RDW 13.2 % (11.9-15.9); WHITE BLOOD COUNT 7.8 K/mm3 (4.0-10.0)
[2020-05-05 12:28] LABS: ALBUMIN 3.4 g/dl (3.4-5.0); BLOOD UREA NITROGEN 14.4 mg/dL (7-18)
[2020-05-05 12:31] LABS: CREATININE 0.8 mg/dL (0.55-1.3)
[2020-05-05 12:32] LABS: BILIRUBIN,TOTAL 0.8 mg/dL (0.2-1); TOT PROT 6.8 g/dl (6.4-8.2)
[2020-05-05] MEDS: AMMONIUM LACTATE 12% LOTION 225 GM BOTTLE TP SCH ×2 (15:09→22:15)
[2020-05-05] MEDS: THIAMINE HCL 100 MG TABLET (FP) PO SCH (22:10)
[2020-05-05] MEDS: MELATONIN 5 MG TABLETS PO SCH (22:11)
[2020-05-06] MEDS: METHADONE HCL 10 MG TABLET PO SCH (05:11)
[2020-05-06] MEDS: chlordiazePOXIDE HCL 25 MG CAPSULE PO SCH ×4 (05:11→22:12)
[2020-05-06] MEDS: NICOTINE POLACRILEX 2 MG GUM BUC PRN ×3 (05:12→17:18)
[2020-05-06] MEDS: hydrOXYzine PAMOATE 25 MG CAPSULE (FP) PO SCH ×5 (05:12→22:12)
[2020-05-06] MEDS: PRENATAL VITAMINS W/ FOLIC ACID TABLET (FP) PO SCH (10:10)
[2020-05-06] MEDS: AMMONIUM LACTATE 12% LOTION 225 GM BOTTLE TP SCH ×2 (10:10→22:12)
[2020-05-06] MEDS: MELATONIN 5 MG TABLETS PO SCH (22:12)
[2020-05-06] MEDS: THIAMINE HCL 100 MG TABLET (FP) PO SCH (22:12)
[2020-05-07] MEDS ORDERED: chlordiazePOXIDE HCL 10 MG CAPSULE PO PRN
[2020-05-07] MEDS: METHADONE HCL 10 MG TABLET PO SCH (05:16)
[2020-05-07] MEDS: hydrOXYzine PAMOATE 25 MG CAPSULE (FP) PO SCH ×5 (05:16→22:06)
[2020-05-07] MEDS: chlordiazePOXIDE HCL 10 MG CAPSULE PO SCH ×4 (05:16→22:06)
[2020-05-07] MEDS: NICOTINE POLACRILEX 2 MG GUM BUC PRN ×3 (05:17→22:08)
[2020-05-07] MEDS: PRENATAL VITAMINS W/ FOLIC ACID TABLET (FP) PO SCH (10:12)
[2020-05-07] MEDS: AMMONIUM LACTATE 12% LOTION 225 GM BOTTLE TP SCH ×2 (10:12→22:08)
[2020-05-07] MEDS: MELATONIN 5 MG TABLETS PO SCH (22:06)
[2020-05-07] MEDS: THIAMINE HCL 100 MG TABLET (FP) PO SCH (22:06)
[2020-05-08] MEDS: chlordiazePOXIDE HCL 10 MG CAPSULE PO SCH ×2 (05:36→17:25)
[2020-05-08] MEDS: hydrOXYzine PAMOATE 25 MG CAPSULE (FP) PO SCH ×5 (05:36→22:19)
[2020-05-08] MEDS: NICOTINE POLACRILEX 2 MG GUM BUC PRN ×4 (05:39→22:18)
[2020-05-08] MEDS: METHADONE HCL 10 MG TABLET PO SCH (05:40)
[2020-05-08] MEDS: PRENATAL VITAMINS W/ FOLIC ACID TABLET (FP) PO SCH (10:06)
[2020-05-08] MEDS: AMMONIUM LACTATE 12% LOTION 225 GM BOTTLE TP SCH ×2 (10:06→22:20)
[2020-05-08] MEDS: THIAMINE HCL 100 MG TABLET (FP) PO SCH (22:19)
[2020-05-08] MEDS: MELATONIN 5 MG TABLETS PO SCH (22:19)
[2020-05-09] MEDS ORDERED: chlordiazePOXIDE HCL 10 MG CAPSULE PO ONE (05:00)
[2020-05-09] MEDS: METHADONE HCL 10 MG TABLET PO SCH (05:06)
[2020-05-09] MEDS: hydrOXYzine PAMOATE 25 MG CAPSULE (FP) PO SCH (05:06)
[2020-05-09] MEDS: NICOTINE POLACRILEX 2 MG GUM BUC PRN (05:07)
[2020-05-09 09:34] VITALS: BP 122/82; PULSE 84; TEMP 98.4
== END 2020-05-09 09:55 | disposition other institution (70) | DRG 773 ==
LOC: YASAS 09:52 → Y6N 12:01
PROVIDERS: ADMIT Allergy & Immunology; ATTEND Allergy & Immunology
PROC: HZ2ZZZZ Detoxification Services for Substance Abuse Treatment (ICD-10-PCS; principal; 2020-05-04)
DX: F10.230 Alcohol dependence with withdrawal, uncomplicated (principal); F11.20 Opioid dependence, uncomplicated; F17.210 Nicotine dependence, cigarettes, uncomplicated; Z59.0 Homelessness
CPT/HCPCS: 36415; 80053; 85027; 86780; C9803; U0003

== ENCOUNTER 2020-05-09 10:04 | Inpatient (IN) | payer OTHER ==
[2020-05-09] MEDS ORDERED: MAGNESIUM CITRATE 300 ML BOTTLE PO PRN (10:39)
[2020-05-09] MEDS ORDERED: P-EPHED 60MG/TRIPROLIDI 2.5MG TABLET PO PRN (10:39)
[2020-05-09] MEDS ORDERED: IBUPROFEN 400 MG TABLET (FP) PO PRN (10:39)
[2020-05-09] MEDS ORDERED: MAGNESIUM HYDROX 2400MG/30ML ORAL SUSPENSION 30 ML CUP PO PRN (10:39)
[2020-05-09] MEDS ORDERED: ACETAMINOPHEN 325 MG TABLET (FP) PO PRN (10:39)
[2020-05-09] MEDS ORDERED: LOPERAMIDE HCL 2 MG CAPSULE PO PRN (10:39)
[2020-05-09] MEDS ORDERED: guaiFENesin 200 MG/10 ML 10 ML UNIT-DOSE CUPS PO PRN (10:39)
[2020-05-09] MEDS ORDERED: MAG HYDROX/AL HYDROX/SIMETH 30 ML UNIT-DOSE CUP PO PRN (10:39)
[2020-05-09] MEDS ORDERED: MENTHOL/PHENOL 1 EACH UD MM PRN (10:39)
[2020-05-09] MEDS: NICOTINE POLACRILEX 2 MG GUM BUC PRN ×3 (12:41→21:18)
[2020-05-09] MEDS: MELATONIN 5 MG TABLETS PO SCH (21:16)
[2020-05-09] MEDS: THIAMINE HCL 100 MG TABLET (FP) PO SCH (21:16)
[2020-05-09] MEDS: hydrOXYzine PAMOATE 25 MG CAPSULE (FP) PO PRN (21:18)
[2020-05-10] MEDS: METHADONE HCL 10 MG TABLET PO SCH (06:10)
[2020-05-10] MEDS: NICOTINE POLACRILEX 2 MG GUM BUC PRN ×3 (06:12→21:23)
[2020-05-10] MEDS: hydrOXYzine PAMOATE 25 MG CAPSULE (FP) PO PRN ×2 (10:10→21:22)
[2020-05-10] MEDS: PRENATAL VITAMINS W/ FOLIC ACID TABLET (FP) PO SCH (10:10)
[2020-05-10] MEDS: THIAMINE HCL 100 MG TABLET (FP) PO SCH (21:22)
[2020-05-10] MEDS: MELATONIN 5 MG TABLETS PO SCH (21:22)
[2020-05-11] MEDS: METHADONE HCL 10 MG TABLET PO SCH (06:29)
[2020-05-11] MEDS: NICOTINE POLACRILEX 2 MG GUM BUC PRN ×4 (06:31→21:13)
[2020-05-11] MEDS: PRENATAL VITAMINS W/ FOLIC ACID TABLET (FP) PO SCH (09:59)
[2020-05-11] MEDS: hydrOXYzine PAMOATE 25 MG CAPSULE (FP) PO PRN (09:59)
[2020-05-11] MEDS: MELATONIN 5 MG TABLETS PO SCH (21:12)
[2020-05-11] MEDS: THIAMINE HCL 100 MG TABLET (FP) PO SCH (21:12)
[2020-05-12] MEDS: METHADONE HCL 10 MG TABLET PO SCH (06:06)
[2020-05-12] MEDS: NICOTINE POLACRILEX 2 MG GUM BUC PRN ×4 (06:06→21:32)
[2020-05-12] MEDS: PRENATAL VITAMINS W/ FOLIC ACID TABLET (FP) PO SCH (10:13)
[2020-05-12] MEDS: hydrOXYzine PAMOATE 25 MG CAPSULE (FP) PO PRN ×2 (10:13→21:31)
[2020-05-12] MEDS: MELATONIN 5 MG TABLETS PO SCH (21:31)
[2020-05-12] MEDS: THIAMINE HCL 100 MG TABLET (FP) PO SCH (21:31)
[2020-05-13] MEDS: METHADONE HCL 10 MG TABLET PO SCH (06:09)
[2020-05-13] MEDS: NICOTINE POLACRILEX 2 MG GUM BUC PRN ×3 (06:11→21:08)
[2020-05-13] MEDS: hydrOXYzine PAMOATE 25 MG CAPSULE (FP) PO PRN ×2 (10:04→21:08)
[2020-05-13] MEDS: PRENATAL VITAMINS W/ FOLIC ACID TABLET (FP) PO SCH (10:04)
[2020-05-13] MEDS: MELATONIN 5 MG TABLETS PO SCH (21:08)
[2020-05-13] MEDS: THIAMINE HCL 100 MG TABLET (FP) PO SCH (21:08)
[2020-05-14] MEDS: METHADONE HCL 10 MG TABLET PO SCH (06:19)
[2020-05-14] MEDS: NICOTINE POLACRILEX 2 MG GUM BUC PRN ×3 (06:20→21:40)
[2020-05-14] MEDS: hydrOXYzine PAMOATE 25 MG CAPSULE (FP) PO PRN ×2 (10:02→16:59)
[2020-05-14] MEDS: PRENATAL VITAMINS W/ FOLIC ACID TABLET (FP) PO SCH (10:02)
[2020-05-14] MEDS ORDERED: PT OWN MED DRAWER 7, Y5N ONE (12:05)
[2020-05-14] MEDS: THIAMINE HCL 100 MG TABLET (FP) PO SCH (21:39)
[2020-05-14] MEDS: MELATONIN 5 MG TABLETS PO SCH (21:39)
[2020-05-15] MEDS: METHADONE HCL 10 MG TABLET PO SCH (05:58)
[2020-05-15] MEDS: NICOTINE POLACRILEX 2 MG GUM BUC PRN ×3 (05:58→21:12)
[2020-05-15] MEDS: hydrOXYzine PAMOATE 25 MG CAPSULE (FP) PO PRN ×2 (10:28→21:12)
[2020-05-15] MEDS: PRENATAL VITAMINS W/ FOLIC ACID TABLET (FP) PO SCH (10:28)
[2020-05-15] MEDS: MELATONIN 5 MG TABLETS PO SCH (21:12)
[2020-05-15] MEDS: THIAMINE HCL 100 MG TABLET (FP) PO SCH (21:12)
[2020-05-16] MEDS: METHADONE HCL 10 MG TABLET PO SCH (06:14)
[2020-05-16] MEDS: NICOTINE POLACRILEX 2 MG GUM BUC PRN ×3 (06:17→21:15)
[2020-05-16] MEDS: PRENATAL VITAMINS W/ FOLIC ACID TABLET (FP) PO SCH (10:22)
[2020-05-16] MEDS: hydrOXYzine PAMOATE 25 MG CAPSULE (FP) PO PRN ×2 (10:22→21:15)
[2020-05-16] MEDS: THIAMINE HCL 100 MG TABLET (FP) PO SCH (21:14)
[2020-05-16] MEDS: MELATONIN 5 MG TABLETS PO SCH (21:14)
[2020-05-17] MEDS: NICOTINE POLACRILEX 2 MG GUM BUC PRN ×4 (05:56→21:14)
[2020-05-17] MEDS: METHADONE HCL 10 MG TABLET PO SCH (05:56)
[2020-05-17] MEDS: PRENATAL VITAMINS W/ FOLIC ACID TABLET (FP) PO SCH (10:02)
[2020-05-17] MEDS: hydrOXYzine PAMOATE 25 MG CAPSULE (FP) PO PRN ×2 (10:02→21:14)
[2020-05-17] MEDS: THIAMINE HCL 100 MG TABLET (FP) PO SCH (21:13)
[2020-05-17] MEDS: MELATONIN 5 MG TABLETS PO SCH (21:13)
[2020-05-18] MEDS: METHADONE HCL 10 MG TABLET PO SCH (06:05)
[2020-05-18] MEDS: NICOTINE POLACRILEX 2 MG GUM BUC PRN ×4 (06:06→21:34)
[2020-05-18] MEDS: hydrOXYzine PAMOATE 25 MG CAPSULE (FP) PO PRN ×2 (10:12→21:34)
[2020-05-18] MEDS: PRENATAL VITAMINS W/ FOLIC ACID TABLET (FP) PO SCH (10:12)
[2020-05-18] MEDS: MELATONIN 5 MG TABLETS PO SCH (21:34)
[2020-05-18] MEDS: THIAMINE HCL 100 MG TABLET (FP) PO SCH (21:34)
[2020-05-19] MEDS: METHADONE HCL 10 MG TABLET PO SCH (05:52)
[2020-05-19] MEDS: NICOTINE POLACRILEX 2 MG GUM BUC PRN ×4 (05:52→21:11)
[2020-05-19] MEDS: PRENATAL VITAMINS W/ FOLIC ACID TABLET (FP) PO SCH (10:15)
[2020-05-19] MEDS: hydrOXYzine PAMOATE 25 MG CAPSULE (FP) PO PRN ×2 (10:15→21:10)
[2020-05-19] MEDS: THIAMINE HCL 100 MG TABLET (FP) PO SCH (21:10)
[2020-05-19] MEDS: MELATONIN 5 MG TABLETS PO SCH (21:10)
[2020-05-20] MEDS: METHADONE HCL 10 MG TABLET PO SCH (06:08)
[2020-05-20] MEDS: NICOTINE POLACRILEX 2 MG GUM BUC PRN ×4 (06:08→21:45)
[2020-05-20] MEDS: hydrOXYzine PAMOATE 25 MG CAPSULE (FP) PO PRN ×3 (10:22→21:44)
[2020-05-20] MEDS: PRENATAL VITAMINS W/ FOLIC ACID TABLET (FP) PO SCH (10:22)
[2020-05-20] MEDS: THIAMINE HCL 100 MG TABLET (FP) PO SCH (21:44)
[2020-05-20] MEDS: MELATONIN 5 MG TABLETS PO SCH (21:44)
[2020-05-21] MEDS: METHADONE HCL 10 MG TABLET PO SCH (06:22)
[2020-05-21] MEDS: NICOTINE POLACRILEX 2 MG GUM BUC PRN ×5 (06:23→21:01)
[2020-05-21] MEDS: PRENATAL VITAMINS W/ FOLIC ACID TABLET (FP) PO SCH (10:12)
[2020-05-21] MEDS: hydrOXYzine PAMOATE 25 MG CAPSULE (FP) PO PRN ×2 (10:12→21:01)
[2020-05-21] MEDS: THIAMINE HCL 100 MG TABLET (FP) PO SCH (21:01)
[2020-05-21] MEDS: MELATONIN 5 MG TABLETS PO SCH (21:01)
[2020-05-22] MEDS: METHADONE HCL 10 MG TABLET PO SCH (06:20)
[2020-05-22] MEDS: NICOTINE POLACRILEX 2 MG GUM BUC PRN ×4 (06:20→21:33)
[2020-05-22] MEDS: hydrOXYzine PAMOATE 25 MG CAPSULE (FP) PO PRN ×2 (10:14→21:33)
[2020-05-22] MEDS: PRENATAL VITAMINS W/ FOLIC ACID TABLET (FP) PO SCH (10:14)
[2020-05-22] MEDS: THIAMINE HCL 100 MG TABLET (FP) PO SCH (21:33)
[2020-05-22] MEDS: MELATONIN 5 MG TABLETS PO SCH (21:33)
[2020-05-23] MEDS: METHADONE HCL 10 MG TABLET PO SCH (06:15)
[2020-05-23] MEDS: NICOTINE POLACRILEX 2 MG GUM BUC PRN ×4 (06:16→21:14)
[2020-05-23] MEDS: hydrOXYzine PAMOATE 25 MG CAPSULE (FP) PO PRN ×2 (10:41→21:14)
[2020-05-23] MEDS: PRENATAL VITAMINS W/ FOLIC ACID TABLET (FP) PO SCH (10:41)
[2020-05-23] MEDS: THIAMINE HCL 100 MG TABLET (FP) PO SCH (21:14)
[2020-05-23] MEDS: MELATONIN 5 MG TABLETS PO SCH (21:14)
[2020-05-24] MEDS: METHADONE HCL 10 MG TABLET PO SCH (06:45)
[2020-05-24] MEDS: NICOTINE POLACRILEX 2 MG GUM BUC PRN ×5 (06:46→21:35)
[2020-05-24] MEDS: PRENATAL VITAMINS W/ FOLIC ACID TABLET (FP) PO SCH (10:12)
[2020-05-24] MEDS: hydrOXYzine PAMOATE 25 MG CAPSULE (FP) PO PRN ×2 (10:12→21:34)
[2020-05-24] MEDS: THIAMINE HCL 100 MG TABLET (FP) PO SCH (21:34)
[2020-05-24] MEDS: MELATONIN 5 MG TABLETS PO SCH (21:34)
[2020-05-25] MEDS: METHADONE HCL 10 MG TABLET PO SCH (06:24)
[2020-05-25] MEDS: NICOTINE POLACRILEX 2 MG GUM BUC PRN ×3 (06:25→21:13)
[2020-05-25] MEDS: PRENATAL VITAMINS W/ FOLIC ACID TABLET (FP) PO SCH (10:28)
[2020-05-25] MEDS: hydrOXYzine PAMOATE 25 MG CAPSULE (FP) PO PRN ×2 (10:28→21:13)
[2020-05-25] MEDS: THIAMINE HCL 100 MG TABLET (FP) PO SCH (21:13)
[2020-05-25] MEDS: MELATONIN 5 MG TABLETS PO SCH (21:13)
[2020-05-26] MEDS: METHADONE HCL 10 MG TABLET PO SCH (05:52)
[2020-05-26] MEDS: NICOTINE POLACRILEX 2 MG GUM BUC PRN ×4 (05:52→21:29)
[2020-05-26] MEDS: PRENATAL VITAMINS W/ FOLIC ACID TABLET (FP) PO SCH (10:04)
[2020-05-26] MEDS: hydrOXYzine PAMOATE 25 MG CAPSULE (FP) PO PRN ×2 (10:05→21:29)
[2020-05-26] MEDS: MELATONIN 5 MG TABLETS PO SCH (21:28)
[2020-05-26] MEDS: THIAMINE HCL 100 MG TABLET (FP) PO SCH (21:28)
[2020-05-27] MEDS: METHADONE HCL 10 MG TABLET PO SCH (06:14)
[2020-05-27] MEDS: NICOTINE POLACRILEX 2 MG GUM BUC PRN ×4 (06:14→21:17)
[2020-05-27] MEDS: PRENATAL VITAMINS W/ FOLIC ACID TABLET (FP) PO SCH (10:22)
[2020-05-27] MEDS: hydrOXYzine PAMOATE 25 MG CAPSULE (FP) PO PRN ×2 (10:23→21:17)
[2020-05-27] MEDS: MELATONIN 5 MG TABLETS PO SCH (21:17)
[2020-05-27] MEDS: THIAMINE HCL 100 MG TABLET (FP) PO SCH (21:17)
[2020-05-28] MEDS: METHADONE HCL 10 MG TABLET PO SCH (05:51)
[2020-05-28] MEDS: NICOTINE POLACRILEX 2 MG GUM BUC PRN ×5 (05:52→21:40)
[2020-05-28] MEDS: PRENATAL VITAMINS W/ FOLIC ACID TABLET (FP) PO SCH (10:33)
[2020-05-28] MEDS: hydrOXYzine PAMOATE 25 MG CAPSULE (FP) PO PRN ×2 (10:33→21:40)
[2020-05-28] MEDS: THIAMINE HCL 100 MG TABLET (FP) PO SCH (21:40)
[2020-05-28] MEDS: MELATONIN 5 MG TABLETS PO SCH (21:40)
[2020-05-29] MEDS: NICOTINE POLACRILEX 2 MG GUM BUC PRN ×3 (06:04→21:18)
[2020-05-29] MEDS: METHADONE HCL 10 MG TABLET PO SCH (06:04)
[2020-05-29] MEDS: PRENATAL VITAMINS W/ FOLIC ACID TABLET (FP) PO SCH (10:16)
[2020-05-29] MEDS: hydrOXYzine PAMOATE 25 MG CAPSULE (FP) PO PRN ×2 (10:16→21:17)
[2020-05-29] MEDS: THIAMINE HCL 100 MG TABLET (FP) PO SCH (21:17)
[2020-05-29] MEDS: MELATONIN 5 MG TABLETS PO SCH (21:17)
[2020-05-30] MEDS: NICOTINE POLACRILEX 2 MG GUM BUC PRN ×4 (06:15→21:23)
[2020-05-30] MEDS: METHADONE HCL 10 MG TABLET PO SCH (06:15)
[2020-05-30] MEDS: hydrOXYzine PAMOATE 25 MG CAPSULE (FP) PO PRN ×2 (10:23→21:23)
[2020-05-30] MEDS: PRENATAL VITAMINS W/ FOLIC ACID TABLET (FP) PO SCH (10:23)
[2020-05-30] MEDS: THIAMINE HCL 100 MG TABLET (FP) PO SCH (21:23)
[2020-05-30] MEDS: MELATONIN 5 MG TABLETS PO SCH (21:23)
[2020-05-31] MEDS: NICOTINE POLACRILEX 2 MG GUM BUC PRN ×4 (06:00→21:05)
[2020-05-31] MEDS: METHADONE HCL 10 MG TABLET PO SCH (06:00)
[2020-05-31] MEDS: PRENATAL VITAMINS W/ FOLIC ACID TABLET (FP) PO SCH (09:58)
[2020-05-31] MEDS: hydrOXYzine PAMOATE 25 MG CAPSULE (FP) PO PRN ×2 (09:58→21:04)
[2020-05-31] MEDS: MELATONIN 5 MG TABLETS PO SCH (21:04)
[2020-05-31] MEDS: THIAMINE HCL 100 MG TABLET (FP) PO SCH (21:04)
[2020-06-01] MEDS: METHADONE HCL 10 MG TABLET PO SCH (06:11)
[2020-06-01] MEDS: NICOTINE POLACRILEX 2 MG GUM BUC PRN ×5 (06:11→21:19)
[2020-06-01] MEDS: hydrOXYzine PAMOATE 25 MG CAPSULE (FP) PO PRN ×2 (09:55→21:18)
[2020-06-01] MEDS: PRENATAL VITAMINS W/ FOLIC ACID TABLET (FP) PO SCH (09:55)
[2020-06-01] MEDS: THIAMINE HCL 100 MG TABLET (FP) PO SCH (21:18)
[2020-06-01] MEDS: MELATONIN 5 MG TABLETS PO SCH (21:18)
[2020-06-02] MEDS: METHADONE HCL 10 MG TABLET PO SCH (05:59)
[2020-06-02] MEDS: NICOTINE POLACRILEX 2 MG GUM BUC PRN ×2 (05:59→09:17)
[2020-06-02 06:47] VITALS: BP 118/71; PULSE 64; TEMP 97.1
[2020-06-02] MEDS: hydrOXYzine PAMOATE 25 MG CAPSULE (FP) PO PRN (09:15)
[2020-06-02] MEDS: PRENATAL VITAMINS W/ FOLIC ACID TABLET (FP) PO SCH (09:15)
== END 2020-06-02 09:20 | disposition home or self-care (01) | DRG 772 ==
LOC: YASAS 10:04 → Y3W 10:05
PROVIDERS: ADMIT Allergy & Immunology; ATTEND Allergy & Immunology
PROC: HZ42ZZZ Group Counseling for Substance Abuse Treatment, Cognitive-Behavioral (ICD-10-PCS; principal; 2020-05-09)
DX: F10.20 Alcohol dependence, uncomplicated (principal); F11.20 Opioid dependence, uncomplicated
CPT/HCPCS: C9803; U0003

== ENCOUNTER 2020-08-24 09:54 | Inpatient (IN) | payer OTHER ==
[2020-08-24 11:15] VITALS: BMI 21.9
[2020-08-24] MEDS ORDERED: LORazepam 2 MG TABLET PO ONE (11:23)
[2020-08-24] MEDS ORDERED: MAGNESIUM CITRATE 300 ML BOTTLE PO PRN (12:10)
[2020-08-24] MEDS ORDERED: ONDANSETRON *ODT* 4 MG TABLET SL PRN (12:10)
[2020-08-24] MEDS ORDERED: MENTHOL/PHENOL 1 EACH UD MM PRN (12:10)
[2020-08-24] MEDS ORDERED: ACETAMINOPHEN 325 MG TABLET (FP) PO PRN ×2 (12:10)
[2020-08-24] MEDS ORDERED: MAG HYDROX/AL HYDROX/SIMETH 30 ML UNIT-DOSE CUP PO PRN (12:10)
[2020-08-24] MEDS ORDERED: MAGNESIUM HYDROX 2400MG/30ML ORAL SUSPENSION 30 ML CUP PO PRN (12:10)
[2020-08-24] MEDS ORDERED: METHOCARBAMOL 500 MG TABLET PO PRN (12:10)
[2020-08-24] MEDS ORDERED: LORazepam 1 MG TABLET PO PRN (12:10)
[2020-08-24] MEDS ORDERED: IBUPROFEN 400 MG TABLET (FP) PO PRN (12:10)
[2020-08-24] MEDS ORDERED: BISMUTH SUBSALICYLATE 524 MG/30 ML PO PRN (12:10)
[2020-08-24] MEDS ORDERED: NALOXONE (NARCAN) HCL 4 MG/0.1 ML SPRAY NS PRN (12:13)
[2020-08-24] MEDS: hydrOXYzine PAMOATE 25 MG CAPSULE (FP) PO SCH ×3 (13:15→22:16)
[2020-08-24] MEDS: NICOTINE POLACRILEX 2 MG GUM BUC PRN ×3 (13:16→22:16)
[2020-08-24] MEDS: LORazepam 2 MG TABLET PO SCH ×2 (17:42→22:16)
[2020-08-24] MEDS: MELATONIN 5 MG TABLETS PO SCH (22:16)
[2020-08-24] MEDS: THIAMINE HCL 100 MG TABLET (FP) PO SCH (22:16)
[2020-08-25] MEDS: hydrOXYzine PAMOATE 25 MG CAPSULE (FP) PO SCH ×5 (05:44→22:01)
[2020-08-25] MEDS: LORazepam 2 MG TABLET PO SCH ×4 (05:44→22:00)
[2020-08-25] MEDS: NICOTINE POLACRILEX 2 MG GUM BUC PRN ×4 (05:45→22:02)
[2020-08-25] MEDS ORDERED: METHADONE HCL 10 MG TABLET PO ONE (09:30)
[2020-08-25] MEDS ORDERED: METHADONE HCL 5 MG TABLET (FOR DETOX USE ONLY) PO ONE (10:15)
[2020-08-25 10:22] LABS: HEMATOCRIT 47.6 % (35.4-49); HEMOGLOBIN 15.4 GM/dL (11.7-16.9); MCH 27.7 pg (25.7-33.7); MCHC 32.4 g/dl (32.0-35.9); MEAN CELL VOLUME 85.2 fl (80-96); MEAN PLT VOLUME 9.3 fl (7.5-11.1); PLATELET COUNT 279 K/MM3 (134-434); RBC 5.58 M/mm3 (4.00-5.60); RDW 14.8 % (11.9-15.9); WHITE BLOOD COUNT 7.7 K/mm3 (4.0-10.0)
[2020-08-25] MEDS: PRENATAL VITAMINS W/ FOLIC ACID TABLET (FP) PO SCH (10:25)
[2020-08-25 10:28] LABS: CALCIUM 9.1 mg/dL (8.5-10.1)
[2020-08-25 10:30] LABS: ALBUMIN 3.5 g/dl (3.4-5.0); BLOOD UREA NITROGEN 12.5 mg/dL (7-18)
[2020-08-25] MEDS ORDERED: METHADONE HCL 5 MG TABLET PO ONE (10:30)
[2020-08-25 10:33] LABS: CREATININE 0.7 mg/dL (0.55-1.3)
[2020-08-25 10:34] LABS: TOT PROT 6.8 g/dl (6.4-8.2)
[2020-08-25 10:38] LABS: BILIRUBIN,TOTAL 0.7 mg/dL (0.2-1)
[2020-08-25] MEDS: THIAMINE HCL 100 MG TABLET (FP) PO SCH (22:01)
[2020-08-25] MEDS: MELATONIN 5 MG TABLETS PO SCH (22:01)
[2020-08-26] MEDS: LORazepam 1 MG TABLET PO SCH ×4 (05:38→22:11)
[2020-08-26] MEDS: hydrOXYzine PAMOATE 25 MG CAPSULE (FP) PO SCH (05:38)
[2020-08-26] MEDS: METHADONE HCL 5 MG TABLET PO SCH (05:39)
[2020-08-26] MEDS ORDERED: METHADONE HCL 5 MG TABLET (FOR DETOX USE ONLY) PO SCH (06:00)
[2020-08-26] MEDS: PRENATAL VITAMINS W/ FOLIC ACID TABLET (FP) PO SCH (10:19)
[2020-08-26] MEDS: NICOTINE POLACRILEX 2 MG GUM BUC PRN ×3 (10:20→22:12)
[2020-08-26] MEDS: THIAMINE HCL 100 MG TABLET (FP) PO SCH (22:11)
[2020-08-26] MEDS: MELATONIN 5 MG TABLETS PO SCH (22:11)
[2020-08-27] MEDS ORDERED: LORazepam 0.5 MG TABLET PO PRN
[2020-08-27] MEDS: LORazepam 0.5 MG TABLET PO SCH ×4 (05:40→22:15)
[2020-08-27] MEDS: METHADONE HCL 5 MG TABLET PO SCH (05:40)
[2020-08-27] MEDS: NICOTINE POLACRILEX 2 MG GUM BUC PRN ×4 (05:42→20:43)
[2020-08-27] MEDS: PRENATAL VITAMINS W/ FOLIC ACID TABLET (FP) PO SCH (10:19)
[2020-08-27] MEDS: hydrOXYzine PAMOATE 25 MG CAPSULE (FP) PO PRN (22:13)
[2020-08-27] MEDS: THIAMINE HCL 100 MG TABLET (FP) PO SCH (22:13)
[2020-08-27] MEDS: MELATONIN 5 MG TABLETS PO SCH (22:13)
[2020-08-28] MEDS ORDERED: LORazepam 0.5 MG TABLET PO ONE (05:00)
[2020-08-28] MEDS: METHADONE HCL 5 MG TABLET PO SCH (05:32)
[2020-08-28] MEDS: NICOTINE POLACRILEX 2 MG GUM BUC PRN ×2 (05:33→10:37)
[2020-08-28 09:36] VITALS: TEMP 97.1
[2020-08-28] MEDS: PRENATAL VITAMINS W/ FOLIC ACID TABLET (FP) PO SCH (10:36)
[2020-08-28] MEDS: hydrOXYzine PAMOATE 25 MG CAPSULE (FP) PO PRN (10:37)
[2020-08-28 13:10] VITALS: BP 124/73; PULSE 74
== END 2020-08-28 14:00 | disposition other institution (70) | DRG 773 ==
LOC: YASAS 09:54 → Y3N 12:23
PROVIDERS: ADMIT Allergy & Immunology; ATTEND Allergy & Immunology
PROC: HZ2ZZZZ Detoxification Services for Substance Abuse Treatment (ICD-10-PCS; principal; 2020-08-24)
DX: F10.230 Alcohol dependence with withdrawal, uncomplicated (principal); F11.20 Opioid dependence, uncomplicated; F17.210 Nicotine dependence, cigarettes, uncomplicated
CPT/HCPCS: 36415; 80053; 85027; 86780; C9803; U0003; U0005

== ENCOUNTER 2020-08-28 14:07 | Inpatient (IN) | payer OTHER ==
[2020-08-28] MEDS ORDERED: P-EPHED 60MG/TRIPROLIDI 2.5MG TABLET PO PRN (14:46)
[2020-08-28] MEDS ORDERED: MAGNESIUM CITRATE 300 ML BOTTLE PO PRN (14:46)
[2020-08-28] MEDS ORDERED: ACETAMINOPHEN 325 MG TABLET (FP) PO PRN (14:46)
[2020-08-28] MEDS ORDERED: MENTHOL/PHENOL 1 EACH UD MM PRN (14:46)
[2020-08-28] MEDS ORDERED: IBUPROFEN 400 MG TABLET (FP) PO PRN (14:46)
[2020-08-28] MEDS ORDERED: guaiFENesin 200 MG/10 ML 10 ML UNIT-DOSE CUPS PO PRN (14:46)
[2020-08-28] MEDS ORDERED: MAGNESIUM HYDROX 2400MG/30ML ORAL SUSPENSION 30 ML CUP PO PRN (14:46)
[2020-08-28] MEDS ORDERED: LOPERAMIDE HCL 2 MG CAPSULE PO PRN (14:46)
[2020-08-28] MEDS: NICOTINE POLACRILEX 2 MG GUM BUC PRN (18:54)
[2020-08-28] MEDS: hydrOXYzine PAMOATE 25 MG CAPSULE (FP) PO PRN ×2 (18:54→21:23)
[2020-08-28] MEDS: MELATONIN 5 MG TABLETS PO SCH (21:22)
[2020-08-28] MEDS: THIAMINE HCL 100 MG TABLET (FP) PO SCH (21:23)
[2020-08-29] MEDS: NICOTINE POLACRILEX 2 MG GUM BUC PRN ×3 (06:12→21:35)
[2020-08-29] MEDS: hydrOXYzine PAMOATE 25 MG CAPSULE (FP) PO PRN ×2 (06:12→09:57)
[2020-08-29] MEDS: NICOTINE 7 MG/24 HOURS TOPICAL PATCH TD SCH (09:56)
[2020-08-29] MEDS: PRENATAL VITAMINS W/ FOLIC ACID TABLET (FP) PO SCH (09:56)
[2020-08-29 11:08] LABS: HIV INTERPRETATION NEGATIVE (NEGATIVE)
[2020-08-29] MEDS: MELATONIN 5 MG TABLETS PO SCH (21:34)
[2020-08-29] MEDS: THIAMINE HCL 100 MG TABLET (FP) PO SCH (21:35)
[2020-08-30] MEDS: traZODone HCL 50 MG TABLET (FP) PO PRN ×2 (00:26→21:07)
[2020-08-30] MEDS: hydrOXYzine PAMOATE 25 MG CAPSULE (FP) PO PRN (06:50)
[2020-08-30] MEDS: NICOTINE POLACRILEX 2 MG GUM BUC PRN ×4 (06:51→21:07)
[2020-08-30] MEDS: NICOTINE 7 MG/24 HOURS TOPICAL PATCH TD SCH (09:33)
[2020-08-30] MEDS: PRENATAL VITAMINS W/ FOLIC ACID TABLET (FP) PO SCH (09:33)
[2020-08-30] MEDS: THIAMINE HCL 100 MG TABLET (FP) PO SCH (21:07)
[2020-08-30] MEDS: MELATONIN 5 MG TABLETS PO SCH (21:07)
[2020-08-31] MEDS: NICOTINE POLACRILEX 2 MG GUM BUC PRN ×3 (06:29→21:55)
[2020-08-31] MEDS: hydrOXYzine PAMOATE 25 MG CAPSULE (FP) PO PRN ×3 (06:29→21:55)
[2020-08-31] MEDS: PRENATAL VITAMINS W/ FOLIC ACID TABLET (FP) PO SCH (09:28)
[2020-08-31] MEDS: NICOTINE 7 MG/24 HOURS TOPICAL PATCH TD SCH (09:29)
[2020-08-31] MEDS: traZODone HCL 50 MG TABLET (FP) PO PRN (21:54)
[2020-08-31] MEDS: MELATONIN 5 MG TABLETS PO SCH (21:54)
[2020-08-31] MEDS: THIAMINE HCL 100 MG TABLET (FP) PO SCH (21:54)
[2020-09-01] MEDS: NICOTINE POLACRILEX 2 MG GUM BUC PRN ×3 (06:47→21:13)
[2020-09-01] MEDS: NICOTINE 7 MG/24 HOURS TOPICAL PATCH TD SCH (09:40)
[2020-09-01] MEDS: PRENATAL VITAMINS W/ FOLIC ACID TABLET (FP) PO SCH (09:40)
[2020-09-01] MEDS: hydrOXYzine PAMOATE 25 MG CAPSULE (FP) PO PRN ×2 (09:41→21:11)
[2020-09-01] MEDS: MELATONIN 5 MG TABLETS PO SCH (21:11)
[2020-09-01] MEDS: THIAMINE HCL 100 MG TABLET (FP) PO SCH (21:11)
[2020-09-01] MEDS: traZODone HCL 50 MG TABLET (FP) PO PRN (21:11)
[2020-09-02] MEDS: hydrOXYzine PAMOATE 25 MG CAPSULE (FP) PO PRN (06:32)
[2020-09-02] MEDS: NICOTINE POLACRILEX 2 MG GUM BUC PRN ×4 (06:32→22:13)
[2020-09-02] MEDS: NICOTINE 7 MG/24 HOURS TOPICAL PATCH TD SCH (10:02)
[2020-09-02] MEDS: PRENATAL VITAMINS W/ FOLIC ACID TABLET (FP) PO SCH (10:03)
[2020-09-02] MEDS: THIAMINE HCL 100 MG TABLET (FP) PO SCH (22:09)
[2020-09-02] MEDS: MELATONIN 5 MG TABLETS PO SCH (22:10)
[2020-09-02] MEDS: traZODone HCL 50 MG TABLET (FP) PO PRN (22:12)
[2020-09-03] MEDS: NICOTINE POLACRILEX 2 MG GUM BUC PRN ×3 (06:27→21:13)
[2020-09-03] MEDS: PRENATAL VITAMINS W/ FOLIC ACID TABLET (FP) PO SCH (09:41)
[2020-09-03] MEDS: hydrOXYzine PAMOATE 25 MG CAPSULE (FP) PO PRN ×2 (09:41→21:13)
[2020-09-03] MEDS: NICOTINE 7 MG/24 HOURS TOPICAL PATCH TD SCH (09:41)
[2020-09-03] MEDS: THIAMINE HCL 100 MG TABLET (FP) PO SCH (21:12)
[2020-09-03] MEDS: traZODone HCL 50 MG TABLET (FP) PO PRN (21:12)
[2020-09-03] MEDS: MELATONIN 5 MG TABLETS PO SCH (21:12)
[2020-09-04] MEDS: hydrOXYzine PAMOATE 25 MG CAPSULE (FP) PO PRN ×2 (06:28→21:29)
[2020-09-04] MEDS: NICOTINE POLACRILEX 2 MG GUM BUC PRN ×3 (06:28→21:31)
[2020-09-04] MEDS: NICOTINE 7 MG/24 HOURS TOPICAL PATCH TD SCH (09:32)
[2020-09-04] MEDS: PRENATAL VITAMINS W/ FOLIC ACID TABLET (FP) PO SCH (09:32)
[2020-09-04] MEDS: MELATONIN 5 MG TABLETS PO SCH (21:29)
[2020-09-04] MEDS: THIAMINE HCL 100 MG TABLET (FP) PO SCH (21:30)
[2020-09-05] MEDS: NICOTINE POLACRILEX 2 MG GUM BUC PRN ×3 (06:54→21:10)
[2020-09-05] MEDS: PRENATAL VITAMINS W/ FOLIC ACID TABLET (FP) PO SCH (09:49)
[2020-09-05] MEDS: NICOTINE 7 MG/24 HOURS TOPICAL PATCH TD SCH (09:49)
[2020-09-05] MEDS: hydrOXYzine PAMOATE 25 MG CAPSULE (FP) PO PRN ×2 (09:50→21:09)
[2020-09-05] MEDS: MELATONIN 5 MG TABLETS PO SCH (21:09)
[2020-09-05] MEDS: THIAMINE HCL 100 MG TABLET (FP) PO SCH (21:09)
[2020-09-06] MEDS: PRENATAL VITAMINS W/ FOLIC ACID TABLET (FP) PO SCH (09:48)
[2020-09-06] MEDS: NICOTINE POLACRILEX 2 MG GUM BUC PRN (09:48)
[2020-09-06] MEDS: NICOTINE 7 MG/24 HOURS TOPICAL PATCH TD SCH (09:48)
[2020-09-06] MEDS: hydrOXYzine PAMOATE 25 MG CAPSULE (FP) PO PRN (09:49)
[2020-09-06] MEDS: THIAMINE HCL 100 MG TABLET (FP) PO SCH (21:38)
[2020-09-06] MEDS: MELATONIN 5 MG TABLETS PO SCH (21:38)
[2020-09-07] MEDS: NICOTINE POLACRILEX 2 MG GUM BUC PRN ×2 (06:32→09:45)
[2020-09-07] MEDS: PRENATAL VITAMINS W/ FOLIC ACID TABLET (FP) PO SCH (09:44)
[2020-09-07] MEDS: NICOTINE 7 MG/24 HOURS TOPICAL PATCH TD SCH (09:45)
[2020-09-07] MEDS: hydrOXYzine PAMOATE 25 MG CAPSULE (FP) PO PRN (09:45)
[2020-09-07] MEDS: MELATONIN 5 MG TABLETS PO SCH (21:44)
[2020-09-07] MEDS: THIAMINE HCL 100 MG TABLET (FP) PO SCH (21:45)
[2020-09-08] MEDS: hydrOXYzine PAMOATE 25 MG CAPSULE (FP) PO PRN ×2 (06:40→21:26)
[2020-09-08] MEDS: PRENATAL VITAMINS W/ FOLIC ACID TABLET (FP) PO SCH (09:47)
[2020-09-08] MEDS: NICOTINE 7 MG/24 HOURS TOPICAL PATCH TD SCH (09:47)
[2020-09-08] MEDS: NICOTINE POLACRILEX 2 MG GUM BUC PRN ×2 (09:47→21:27)
[2020-09-08] MEDS: MELATONIN 5 MG TABLETS PO SCH (21:26)
[2020-09-08] MEDS: THIAMINE HCL 100 MG TABLET (FP) PO SCH (21:26)
[2020-09-09] MEDS: hydrOXYzine PAMOATE 25 MG CAPSULE (FP) PO PRN ×2 (06:03→21:25)
[2020-09-09] MEDS: NICOTINE POLACRILEX 2 MG GUM BUC PRN ×3 (06:06→21:25)
[2020-09-09] MEDS: PRENATAL VITAMINS W/ FOLIC ACID TABLET (FP) PO SCH (09:38)
[2020-09-09] MEDS: NICOTINE 7 MG/24 HOURS TOPICAL PATCH TD SCH (09:38)
[2020-09-09] MEDS: MAG HYDROX/AL HYDROX/SIMETH 30 ML UNIT-DOSE CUP PO PRN (12:22)
[2020-09-09] MEDS: THIAMINE HCL 100 MG TABLET (FP) PO SCH (21:25)
[2020-09-09] MEDS: MELATONIN 5 MG TABLETS PO SCH (21:25)
[2020-09-10] MEDS: hydrOXYzine PAMOATE 25 MG CAPSULE (FP) PO PRN ×2 (06:33→21:15)
[2020-09-10] MEDS: NICOTINE POLACRILEX 2 MG GUM BUC PRN ×3 (06:34→21:15)
[2020-09-10] MEDS: NICOTINE 7 MG/24 HOURS TOPICAL PATCH TD SCH (09:41)
[2020-09-10] MEDS: PRENATAL VITAMINS W/ FOLIC ACID TABLET (FP) PO SCH (09:41)
[2020-09-10] MEDS: MELATONIN 5 MG TABLETS PO SCH (21:15)
[2020-09-10] MEDS: THIAMINE HCL 100 MG TABLET (FP) PO SCH (21:15)
[2020-09-11] MEDS: hydrOXYzine PAMOATE 25 MG CAPSULE (FP) PO PRN ×2 (06:47→21:40)
[2020-09-11] MEDS: NICOTINE POLACRILEX 2 MG GUM BUC PRN ×3 (06:48→21:42)
[2020-09-11] MEDS: PRENATAL VITAMINS W/ FOLIC ACID TABLET (FP) PO SCH (09:36)
[2020-09-11] MEDS: NICOTINE 7 MG/24 HOURS TOPICAL PATCH TD SCH (09:36)
[2020-09-11] MEDS: traZODone HCL 50 MG TABLET (FP) PO PRN (21:40)
[2020-09-11] MEDS: MELATONIN 5 MG TABLETS PO SCH (21:40)
[2020-09-11] MEDS: THIAMINE HCL 100 MG TABLET (FP) PO SCH (21:40)
[2020-09-12] MEDS: NICOTINE POLACRILEX 2 MG GUM BUC PRN ×3 (06:24→21:20)
[2020-09-12] MEDS: PRENATAL VITAMINS W/ FOLIC ACID TABLET (FP) PO SCH (09:28)
[2020-09-12] MEDS: NICOTINE 7 MG/24 HOURS TOPICAL PATCH TD SCH (09:29)
[2020-09-12] MEDS: THIAMINE HCL 100 MG TABLET (FP) PO SCH (21:20)
[2020-09-12] MEDS: hydrOXYzine PAMOATE 25 MG CAPSULE (FP) PO PRN (21:20)
[2020-09-12] MEDS: MELATONIN 5 MG TABLETS PO SCH (21:20)
[2020-09-13] MEDS: hydrOXYzine PAMOATE 25 MG CAPSULE (FP) PO PRN ×2 (06:44→21:28)
[2020-09-13] MEDS: PRENATAL VITAMINS W/ FOLIC ACID TABLET (FP) PO SCH (09:46)
[2020-09-13] MEDS: NICOTINE 7 MG/24 HOURS TOPICAL PATCH TD SCH (09:46)
[2020-09-13] MEDS: NICOTINE POLACRILEX 2 MG GUM BUC PRN ×2 (09:46→21:28)
[2020-09-13] MEDS: THIAMINE HCL 100 MG TABLET (FP) PO SCH (21:28)
[2020-09-13] MEDS: traZODone HCL 50 MG TABLET (FP) PO PRN (21:28)
[2020-09-13] MEDS: MELATONIN 5 MG TABLETS PO SCH (21:28)
[2020-09-14] MEDS: hydrOXYzine PAMOATE 25 MG CAPSULE (FP) PO PRN ×2 (06:37→21:10)
[2020-09-14] MEDS: NICOTINE POLACRILEX 2 MG GUM BUC PRN ×2 (06:37→21:10)
[2020-09-14] MEDS: PRENATAL VITAMINS W/ FOLIC ACID TABLET (FP) PO SCH (09:49)
[2020-09-14] MEDS: NICOTINE 7 MG/24 HOURS TOPICAL PATCH TD SCH (09:49)
[2020-09-14] MEDS: THIAMINE HCL 100 MG TABLET (FP) PO SCH (21:10)
[2020-09-14] MEDS: MELATONIN 5 MG TABLETS PO SCH (21:10)
[2020-09-14] MEDS: traZODone HCL 50 MG TABLET (FP) PO PRN (22:11)
[2020-09-15] MEDS: hydrOXYzine PAMOATE 25 MG CAPSULE (FP) PO PRN ×2 (06:33→21:15)
[2020-09-15] MEDS: NICOTINE POLACRILEX 2 MG GUM BUC PRN ×3 (06:36→21:15)
[2020-09-15] MEDS: NICOTINE 7 MG/24 HOURS TOPICAL PATCH TD SCH (09:42)
[2020-09-15] MEDS: PRENATAL VITAMINS W/ FOLIC ACID TABLET (FP) PO SCH (09:42)
[2020-09-15] MEDS: MELATONIN 5 MG TABLETS PO SCH (21:14)
[2020-09-15] MEDS: THIAMINE HCL 100 MG TABLET (FP) PO SCH (21:15)
[2020-09-15] MEDS: traZODone HCL 50 MG TABLET (FP) PO PRN (21:15)
[2020-09-16] MEDS: NICOTINE 7 MG/24 HOURS TOPICAL PATCH TD SCH (09:33)
[2020-09-16] MEDS: PRENATAL VITAMINS W/ FOLIC ACID TABLET (FP) PO SCH (09:33)
[2020-09-16] MEDS: NICOTINE POLACRILEX 2 MG GUM BUC PRN ×2 (09:34→22:29)
[2020-09-16] MEDS: hydrOXYzine PAMOATE 25 MG CAPSULE (FP) PO PRN ×2 (09:34→22:29)
[2020-09-16] MEDS: traZODone HCL 50 MG TABLET (FP) PO PRN (22:29)
[2020-09-16] MEDS: MELATONIN 5 MG TABLETS PO SCH (22:29)
[2020-09-16] MEDS: THIAMINE HCL 100 MG TABLET (FP) PO SCH (22:29)
[2020-09-17] MEDS: hydrOXYzine PAMOATE 25 MG CAPSULE (FP) PO PRN ×2 (06:39→21:23)
[2020-09-17] MEDS: NICOTINE POLACRILEX 2 MG GUM BUC PRN ×3 (06:41→21:23)
[2020-09-17] MEDS: NICOTINE 7 MG/24 HOURS TOPICAL PATCH TD SCH (09:53)
[2020-09-17] MEDS: PRENATAL VITAMINS W/ FOLIC ACID TABLET (FP) PO SCH (09:53)
[2020-09-17] MEDS: MELATONIN 5 MG TABLETS PO SCH (21:23)
[2020-09-17] MEDS: THIAMINE HCL 100 MG TABLET (FP) PO SCH (21:23)
[2020-09-18] MEDS: hydrOXYzine PAMOATE 25 MG CAPSULE (FP) PO PRN ×2 (06:14→21:27)
[2020-09-18] MEDS: PRENATAL VITAMINS W/ FOLIC ACID TABLET (FP) PO SCH (10:01)
[2020-09-18] MEDS: NICOTINE 7 MG/24 HOURS TOPICAL PATCH TD SCH (10:02)
[2020-09-18] MEDS: MELATONIN 5 MG TABLETS PO SCH (21:27)
[2020-09-18] MEDS: THIAMINE HCL 100 MG TABLET (FP) PO SCH (21:27)
[2020-09-18] MEDS: NICOTINE POLACRILEX 2 MG GUM BUC PRN (21:28)
[2020-09-19] MEDS: NICOTINE POLACRILEX 2 MG GUM BUC PRN ×3 (06:54→21:20)
[2020-09-19] MEDS: hydrOXYzine PAMOATE 25 MG CAPSULE (FP) PO PRN ×2 (06:54→21:19)
[2020-09-19] MEDS: PRENATAL VITAMINS W/ FOLIC ACID TABLET (FP) PO SCH (10:00)
[2020-09-19] MEDS: NICOTINE 7 MG/24 HOURS TOPICAL PATCH TD SCH (10:01)
[2020-09-19] MEDS: THIAMINE HCL 100 MG TABLET (FP) PO SCH (21:19)
[2020-09-19] MEDS: MELATONIN 5 MG TABLETS PO SCH (21:19)
[2020-09-20] MEDS: hydrOXYzine PAMOATE 25 MG CAPSULE (FP) PO PRN ×2 (06:21→22:08)
[2020-09-20] MEDS: NICOTINE POLACRILEX 2 MG GUM BUC PRN ×3 (06:22→22:10)
[2020-09-20] MEDS: NICOTINE 7 MG/24 HOURS TOPICAL PATCH TD SCH (09:46)
[2020-09-20] MEDS: PRENATAL VITAMINS W/ FOLIC ACID TABLET (FP) PO SCH (09:46)
[2020-09-20] MEDS: THIAMINE HCL 100 MG TABLET (FP) PO SCH (22:08)
[2020-09-20] MEDS: MELATONIN 5 MG TABLETS PO SCH (22:08)
[2020-09-20] MEDS: traZODone HCL 50 MG TABLET (FP) PO PRN (22:09)
[2020-09-21] MEDS: NICOTINE POLACRILEX 2 MG GUM BUC PRN ×2 (06:26→21:17)
[2020-09-21] MEDS: hydrOXYzine PAMOATE 25 MG CAPSULE (FP) PO PRN ×2 (06:26→21:16)
[2020-09-21] MEDS: NICOTINE 7 MG/24 HOURS TOPICAL PATCH TD SCH (09:55)
[2020-09-21] MEDS: PRENATAL VITAMINS W/ FOLIC ACID TABLET (FP) PO SCH (09:55)
[2020-09-21] MEDS: THIAMINE HCL 100 MG TABLET (FP) PO SCH (21:16)
[2020-09-21] MEDS: MELATONIN 5 MG TABLETS PO SCH (21:16)
[2020-09-22] MEDS: hydrOXYzine PAMOATE 25 MG CAPSULE (FP) PO PRN ×2 (06:37→21:32)
[2020-09-22] MEDS: NICOTINE POLACRILEX 2 MG GUM BUC PRN ×3 (06:38→21:32)
[2020-09-22] MEDS: NICOTINE 7 MG/24 HOURS TOPICAL PATCH TD SCH (09:51)
[2020-09-22] MEDS: PRENATAL VITAMINS W/ FOLIC ACID TABLET (FP) PO SCH (09:51)
[2020-09-22] MEDS: THIAMINE HCL 100 MG TABLET (FP) PO SCH (21:32)
[2020-09-22] MEDS: MELATONIN 5 MG TABLETS PO SCH (21:32)
[2020-09-23] MEDS: NICOTINE POLACRILEX 2 MG GUM BUC PRN ×3 (06:36→21:12)
[2020-09-23 07:11] VITALS: TEMP 97.6
[2020-09-23] MEDS: NICOTINE 7 MG/24 HOURS TOPICAL PATCH TD SCH (09:48)
[2020-09-23] MEDS: PRENATAL VITAMINS W/ FOLIC ACID TABLET (FP) PO SCH (09:48)
[2020-09-23] MEDS: MAG HYDROX/AL HYDROX/SIMETH 30 ML UNIT-DOSE CUP PO PRN (11:53)
[2020-09-23] MEDS: MELATONIN 5 MG TABLETS PO SCH (21:12)
[2020-09-23] MEDS: hydrOXYzine PAMOATE 25 MG CAPSULE (FP) PO PRN (21:12)
[2020-09-23] MEDS: THIAMINE HCL 100 MG TABLET (FP) PO SCH (21:12)
[2020-09-24] MEDS: hydrOXYzine PAMOATE 25 MG CAPSULE (FP) PO PRN (06:33)
[2020-09-24 07:19] VITALS: BP 115/80; PULSE 71
[2020-09-24] MEDS: NICOTINE 7 MG/24 HOURS TOPICAL PATCH TD SCH (09:56)
[2020-09-24] MEDS: PRENATAL VITAMINS W/ FOLIC ACID TABLET (FP) PO SCH (09:56)
[2020-09-24] MEDS: NICOTINE POLACRILEX 2 MG GUM BUC PRN (09:58)
== END 2020-09-24 10:05 | disposition home or self-care (01) | DRG 772 ==
LOC: YASAS 14:07 → Y5N 14:08
PROVIDERS: ADMIT Allergy & Immunology; ATTEND Allergy & Immunology
PROC: HZ42ZZZ Group Counseling for Substance Abuse Treatment, Cognitive-Behavioral (ICD-10-PCS; principal; 2020-08-28)
DX: F10.20 Alcohol dependence, uncomplicated (principal); F11.20 Opioid dependence, uncomplicated; F17.210 Nicotine dependence, cigarettes, uncomplicated; F19.282 Other psychoactive substance dependence with psychoactive substance-induced sleep disorder
CPT/HCPCS: 36415; 87389

== ENCOUNTER 2020-11-30 11:25 | Inpatient (IN) | payer OTHER ==
[2020-11-30 12:12] VITALS: BMI 21.2
[2020-11-30] MEDS ORDERED: ONDANSETRON *ODT* 4 MG TABLET SL PRN (17:11)
[2020-11-30] MEDS ORDERED: MAGNESIUM CITRATE 300 ML BOTTLE PO PRN (17:11)
[2020-11-30] MEDS ORDERED: MAGNESIUM HYDROX 2400MG/30ML ORAL SUSPENSION 30 ML CUP PO PRN (17:11)
[2020-11-30] MEDS ORDERED: BISMUTH SUBSALICYLATE 524 MG/30 ML PO PRN (17:11)
[2020-11-30] MEDS ORDERED: MAG HYDROX/AL HYDROX/SIMETH 30 ML UNIT-DOSE CUP PO PRN (17:11)
[2020-11-30] MEDS ORDERED: MENTHOL/PHENOL 1 EACH UD MM PRN (17:11)
[2020-11-30] MEDS ORDERED: IBUPROFEN 400 MG TABLET (FP) PO PRN (17:11)
[2020-11-30] MEDS ORDERED: ACETAMINOPHEN 325 MG TABLET (FP) PO PRN ×2 (17:11)
[2020-11-30] MEDS ORDERED: methaDONE HCL 10 MG TABLET (FOR DETOX USE ONLY) PO ONE (17:17)
[2020-11-30] MEDS ORDERED: cloNIDine HCL 0.1 MG TABLET PO PRN (17:17)
[2020-11-30] MEDS: NICOTINE POLACRILEX 2 MG GUM BUC PRN (18:40)
[2020-11-30] MEDS: MELATONIN 5 MG TABLETS PO SCH (22:03)
[2020-11-30] MEDS: diazePAM 5 MG TABLET PO SCH (22:03)
[2020-11-30] MEDS: THIAMINE HCL 100 MG TABLET (FP) PO SCH (22:04)
[2020-12-01] MEDS: diazePAM 5 MG TABLET PO SCH ×4 (05:25→22:17)
[2020-12-01] MEDS ORDERED: methaDONE HCL 10 MG TABLET (FOR DETOX USE ONLY) ONE (10:08)
[2020-12-01] MEDS: METHOCARBAMOL 500 MG TABLET PO PRN (10:17)
[2020-12-01] MEDS: PRENATAL VITAMINS W/ FOLIC ACID TABLET (FP) PO SCH (10:17)
[2020-12-01] MEDS: NICOTINE 21 MG/24 HOURS TOPICAL PATCH TD SCH (10:18)
[2020-12-01] MEDS: NICOTINE POLACRILEX 2 MG GUM BUC PRN ×3 (10:19→22:18)
[2020-12-01 11:31] LABS: HEMATOCRIT 44.6 % (35.4-49); HEMOGLOBIN 14.8 GM/dL (11.7-16.9); MCH 29.6 pg (25.7-33.7); MCHC 33.2 g/dl (32.0-35.9); MEAN CELL VOLUME 89.2 fl (80-96); MEAN PLT VOLUME 9.6 fl (7.5-11.1); PLATELET COUNT 245 10^3/uL (134-434); RDW 15.7 % (11.9-15.9); WHITE BLOOD COUNT 9.2 K/mm3 (4.0-10.0)
[2020-12-01 11:53] LABS: BLOOD UREA NITROGEN 12.2 mg/dL (7-18)
[2020-12-01 11:54] LABS: ALBUMIN 3.4 g/dl (3.4-5.0)
[2020-12-01 11:57] LABS: CREATININE 0.8 mg/dL (0.55-1.3)
[2020-12-01 11:58] LABS: BILIRUBIN,TOTAL 0.8 mg/dL (0.2-1); TOT PROT 7.1 g/dl (6.4-8.2)
[2020-12-01 13:59] LABS: HIV INTERPRETATION NEGATIVE (NEGATIVE)
[2020-12-01] MEDS: diazePAM 5 MG TABLET PO PRN (14:36)
[2020-12-01] MEDS: THIAMINE HCL 100 MG TABLET (FP) PO SCH (22:17)
[2020-12-01] MEDS: MELATONIN 5 MG TABLETS PO SCH (22:18)
[2020-12-02] MEDS: diazePAM 5 MG TABLET PO SCH ×3 (05:40→22:20)
[2020-12-02] MEDS ORDERED: methaDONE HCL 10 MG TABLET (FOR DETOX USE ONLY) PO ONE (10:00)
[2020-12-02] MEDS: PRENATAL VITAMINS W/ FOLIC ACID TABLET (FP) PO SCH (10:10)
[2020-12-02] MEDS: NICOTINE 21 MG/24 HOURS TOPICAL PATCH TD SCH (10:11)
[2020-12-02] MEDS: NICOTINE POLACRILEX 2 MG GUM BUC PRN ×3 (10:11→22:23)
[2020-12-02] MEDS: diazePAM 5 MG TABLET PO PRN ×2 (10:12→17:07)
[2020-12-02] MEDS: hydrOXYzine PAMOATE 25 MG CAPSULE (FP) PO PRN (17:08)
[2020-12-02] MEDS: MELATONIN 5 MG TABLETS PO SCH (22:21)
[2020-12-02] MEDS: THIAMINE HCL 100 MG TABLET (FP) PO SCH (22:21)
[2020-12-03] MEDS: NICOTINE POLACRILEX 2 MG GUM BUC PRN ×4 (05:25→22:13)
[2020-12-03] MEDS: diazePAM 5 MG TABLET PO SCH ×2 (05:25→17:56)
[2020-12-03] MEDS ORDERED: methaDONE HCL 10 MG TABLET (FOR DETOX USE ONLY) ONE (09:23)
[2020-12-03] MEDS: PRENATAL VITAMINS W/ FOLIC ACID TABLET (FP) PO SCH (10:09)
[2020-12-03] MEDS: NICOTINE 21 MG/24 HOURS TOPICAL PATCH TD SCH (10:10)
[2020-12-03] MEDS: diazePAM 5 MG TABLET PO PRN ×2 (10:12→15:00)
[2020-12-03] MEDS: THIAMINE HCL 100 MG TABLET (FP) PO SCH (22:11)
[2020-12-03] MEDS: MELATONIN 5 MG TABLETS PO SCH (22:12)
[2020-12-04] MEDS ORDERED: diazePAM 5 MG TABLET PO ONE (06:00)
[2020-12-04] MEDS: PRENATAL VITAMINS W/ FOLIC ACID TABLET (FP) PO SCH (09:43)
[2020-12-04] MEDS: NICOTINE POLACRILEX 2 MG GUM BUC PRN ×2 (09:44→21:36)
[2020-12-04] MEDS: NICOTINE 21 MG/24 HOURS TOPICAL PATCH TD SCH (09:45)
[2020-12-04] MEDS ORDERED: methaDONE HCL 10 MG TABLET (FOR DETOX USE ONLY) PO ONE (10:00)
[2020-12-04] MEDS: METHOCARBAMOL 500 MG TABLET PO PRN (12:40)
[2020-12-04] MEDS: hydrOXYzine PAMOATE 25 MG CAPSULE (FP) PO PRN ×3 (12:40→22:17)
[2020-12-04] MEDS ORDERED: LORazepam 2 MG/ML SDV VIAL IVPUSH PRN (19:00)
[2020-12-04] MEDS: THIAMINE HCL 100 MG TABLET (FP) PO SCH (22:17)
[2020-12-04] MEDS: MELATONIN 5 MG TABLETS PO SCH (22:18)
[2020-12-05 06:16] VITALS: BP 112/66; PULSE 62; TEMP 98
== END 2020-12-05 09:24 | disposition other institution (70) | DRG 773 ==
LOC: YASAS 11:25 → Y6N 18:01
PROVIDERS: ADMIT Allergy & Immunology; ATTEND Allergy & Immunology
PROC: HZ2ZZZZ Detoxification Services for Substance Abuse Treatment (ICD-10-PCS; principal; 2020-11-30)
DX: F11.23 Opioid dependence with withdrawal (principal); F10.230 Alcohol dependence with withdrawal, uncomplicated; F17.210 Nicotine dependence, cigarettes, uncomplicated; G47.00 Insomnia, unspecified
CPT/HCPCS: 36415; 80053; 82962; 85027; 86780; 87389; 93005; 93010; C9803; U0003; U0005

== ENCOUNTER 2024-03-02 12:37 | Inpatient (IN) | payer OTHER ==
[2024-03-02 14:15] VITALS: BMI 17.8
[2024-03-02] MEDS ORDERED: ONDANSETRON *ODT* 4 MG TABLET SL PRN (15:57)
[2024-03-02] MEDS ORDERED: diazePAM 5 MG TABLET PO PRN (15:57)
[2024-03-02] MEDS ORDERED: IBUPROFEN 600 MG TABLET (FP) PO PRN (15:57)
[2024-03-02] MEDS ORDERED: DICYCLOMINE HCL 10 MG CAPSULE PO PRN (15:57)
[2024-03-02] MEDS ORDERED: MAG HYDROX/AL HYDROX/SIMETH 30 ML UNIT-DOSE CUP PO PRN (15:57)
[2024-03-02] MEDS ORDERED: BENZONATATE 200 MG CAPSULE PO PRN (15:57)
[2024-03-02] MEDS ORDERED: POLYETHYLENE GLYCOL (HEALTHYLAX) 3350 17 GM PACKET PO PRN (15:57)
[2024-03-02] MEDS ORDERED: NALOXONE (NARCAN) HCL 4 MG/0.1 ML SPRAY NS PRN (15:57)
[2024-03-02] MEDS ORDERED: ACETAMINOPHEN 325 MG TABLET (FP) PO PRN (15:57)
[2024-03-02] MEDS ORDERED: methaDONE HCL 10 MG TABLET (FOR DETOX USE ONLY) PO PRN (15:57)
[2024-03-02] MEDS ORDERED: MAGNESIUM HYDROX 2400MG/30ML ORAL SUSPENSION 30 ML CUP PO PRN (15:57)
[2024-03-02] MEDS ORDERED: IBUPROFEN 400 MG TABLET (FP) PO PRN (15:57)
[2024-03-02] MEDS ORDERED: BENZOCAINE/MENTHOL (CHLORASEPTIC ) LOZENGE MM PRN (15:57)
[2024-03-02] MEDS ORDERED: guaiFENesin 600 MG TABLET.ER (FP) PO PRN (15:57)
[2024-03-02] MEDS ORDERED: methaDONE HCL 10 MG TABLET (FOR DETOX USE ONLY) ONE (17:21)
[2024-03-02] MEDS ORDERED: diazePAM 5 MG TABLET ONE (17:21)
[2024-03-02] MEDS: diazePAM 5 MG TABLET PO SCH (17:26)
[2024-03-02] MEDS: methaDONE HCL 10 MG TABLET (FOR DETOX USE ONLY) PO ONE (17:26)
[2024-03-02] MEDS: hydrOXYzine PAMOATE 25 MG CAPSULE (FP) PO PRN (18:42)
[2024-03-02] MEDS: METHOCARBAMOL 500 MG TABLET PO PRN (18:42)
[2024-03-02] MEDS: NICOTINE POLACRILEX 2 MG GUM BUC PRN (19:32)
[2024-03-02] MEDS: THIAMINE 100 MG TABLET PO SCH (22:19)
[2024-03-02] MEDS: cloNIDine HCL 0.1 MG TABLET PO PRN (22:19)
[2024-03-02] MEDS: MELATONIN 5 MG TABLETS PO SCH (22:19)
[2024-03-03 09:01] LABS: HEMATOCRIT 40.4 % (35.4-49); HEMOGLOBIN 13.4 GM/dL (11.7-16.9); MCH 30.9 pg (25.7-33.7); MCHC 33.2 g/dl (32.0-35.9); MEAN CELL VOLUME 93.1 fl (80-96); MEAN PLT VOLUME 9.6 fl (7.5-11.1); PLATELET COUNT 276 10^3/uL (134-434); RBC 4.34 M/mm3 (4.00-5.60); RDW 14.3 % (11.9-15.9); WHITE BLOOD COUNT 10.2 K/mm3 (4.0-10.0)
[2024-03-03 09:32] LABS: CHLORIDE 101 mmol/L (98-107); POTASSIUM 3.2 mmol/L (3.5-5.1); SODIUM 140 mmol/L (136-145)
[2024-03-03 09:34] LABS: ALBUMIN 3.5 g/dl (3.4-5.0); ANION GAP 7 mmol/L (4-13); BLOOD UREA NITROGEN 14.9 mg/dL (7-18); CALCIUM 9.1 mg/dL (8.5-10.1); CO2 33 mmol/L (21-32); GLUCOSE,RANDOM 90 mg/dL (74-106)
[2024-03-03 09:36] LABS: CREATININE 0.6 mg/dL (0.55-1.3)
[2024-03-03 09:37] LABS: SGOT/AST 75 U/L (15-37); SGPT/ALT 75 U/L (13-61)
[2024-03-03 09:39] LABS: ALK PHOS 103 U/L (45-117); BILIRUBIN,TOTAL 0.4 mg/dL (0.2-1)
[2024-03-03] MEDS: PRENATAL VITAMINS W/ FOLIC ACID TABLET (FP) PO SCH (09:51)
[2024-03-03] MEDS: NICOTINE 14 MG/24 HOURS TOPICAL PATCH TD SCH (09:52)
[2024-03-03 10:30] LABS: HIV INTERPRETATION NEGATIVE (NEGATIVE)
[2024-03-03] MEDS: POTASSIUM CHLORIDE ORAL LIQUID 20 MEQ/15 ML PO ONE (11:47)
[2024-03-04] MEDS: diazePAM 5 MG TABLET PO SCH (05:48)
[2024-03-04] MEDS: methaDONE HCL 10 MG TABLET (FOR DETOX USE ONLY) PO ONE (10:32)
[2024-03-05] MEDS: diazePAM 5 MG TABLET PO SCH (06:04)
[2024-03-06] MEDS: diazePAM 5 MG TABLET PO ONE (05:38)
[2024-03-06] MEDS: methaDONE HCL 10 MG TABLET (FOR DETOX USE ONLY) PO ONE (09:29)
[2024-03-06] MEDS: LOPERAMIDE HCL 2 MG CAPSULE PO PRN (09:32)
[2024-03-06 10:04] VITALS: RESP 16
[2024-03-06] MEDS: BISMUTH SUBSALICYLATE 524 MG/30 ML PO PRN (14:44)
[2024-03-07] MEDS: NALOXONE (NYS OPIOID OVERDOSE PROGRAM) 4 MG/0.1 ML SPRAY NS SCH (08:55)
[2024-03-07 09:23] VITALS: BP 116/74; PULSE 90; TEMP 97.6
== END 2024-03-07 10:50 | disposition home or self-care (01) | DRG 773 ==
LOC: YASAS 12:37 → Y3N 17:19
PROVIDERS: ADMIT Allergy & Immunology; ATTEND Surgery
PROC: HZ2ZZZZ Detoxification Services for Substance Abuse Treatment (ICD-10-PCS; principal; 2024-03-02)
DX: F11.23 Opioid dependence with withdrawal (principal); F10.230 Alcohol dependence with withdrawal, uncomplicated; F17.210 Nicotine dependence, cigarettes, uncomplicated; E87.6 Hypokalemia; E78.2 Mixed hyperlipidemia
CPT/HCPCS: 36415; 80053; 80307; 84132; 85027; 86780; 87389; 93005; 93010